=== PATIENT | female | born 1965 | race Two or more races ===

== ENCOUNTER → 2024-06-26 13:37 | Outpatient (BNVA) | payer OTHER, SELFPAY | PROVIDERS: PCP Physician Assistant; Visit Provider Physician Assistant | DX: Z00.00 Encounter for general adult medical examination without abnormal findings (principal); Z23 Encounter for immunization; F33.1 Major depressive disorder, recurrent, moderate; F41.9 Anxiety disorder, unspecified; G43.019 Migraine without aura, intractable, without status migrainosus; R23.2 Flushing; E78.9 Disorder of lipoprotein metabolism, unspecified; J45.20 Mild intermittent asthma, uncomplicated | CPT/HCPCS: 90471; 90656; 96127; 96160; 99396 ==

== ENCOUNTER 2024-09-13 08:28 | Outpatient (AMB) | payer OTHER, SELFPAY ==
--- OUTSIDE RECORDS SUMMARY | 2024-09-13 08:39 | XMS_ITS | Patient Health Record ---
Author Organization [facility] Address [address] [place] [address] Care Team Providers Care Scout Professional Sports Name Role Phone Mendoza [place] Primary Care Provider Unavailab Gaurav Lo Jr Unavailable [phone] Allergies Allergen (clinical drug ingredient) Drug/Non Drug Allergy documented on EMR Reaction Allergy Type Onset Date Status celecoxib CeleBREX Unknown Drug Allergy Active contrast dye (uncoded) Unknown Allergy Active Results Component Value Reference Range Notes Pathology Reviewed date:01/25/2024 08:25:40 AM Interpretation: Performing Lab:[facility], [address] [place] [phone] Notes/Report: Name: Melina Cook Age/Sex: 58/F : 1965 Unit#: [id number] Attend Dr: Gaurav Nunez MD Re01/19/24 Status : [facility] Location: [facility] Disch: SPEC : [id number] RECD : 01/19/24 STATUS: TONO RENTERIA NUM: [id number] TOMER: 01/19/24-[address]: Gaurav Nunez MD ENTERED: 01/19/24 35 SP TYPE: Surgical OTHR DR: Mendoza [place] PA-C ORDERED: HE Stain/3, Gross Micro L4/2, IHC, Special st. 2/2, H. pylori, AB/PAS/2 Diagnosis A. Stomach, antrum, biopsy: Gastric antral mucosa with mild chronic inactive gastritis; negative for Helicob acter pylori, intestinal metaplasia and dysplasia. B. Gastroesophageal junction, biopsy: Squamocolumnar junctional mucosa with mild chronic inflammation and few scattered intraepithelial eosinophils consistent with reflux esophagitis; negativ e for intestinal metaplasia and dysplasia. Clinical History Pre-Op Dx: Epigastric pain Post-Op Dx: Normal EGD Microscopic Description A-B. Microscopic sec tions examined. No metaplastic changes are seen, supported by AB/PAS stains (A-B). Material Received A. Antral bx's B. EG junction bx's Gross Description Received in two parts. Part A: Received in formalin labeled ?antral bx's (sic)? is a 0.4 cm rudolph rectangular tissue fragment, submitted in toto in a cassette labeled A. Part B: Received in formalin labeled ?EG junction bx's? are 4 hernandez-white and rudolph irregular and rectangular tiss ue fragments ranging from 0.15-0.35 cm, submitted in toto in a cassette labeled B. CEDS Special stains order ed and performed: AB/PAS on A-B. Copies To: Gaurav Nunez MD [facility] [address] [place] [id number] CONTINUED ON NEXT PAGE Name: Melina Cook Age/Sex: 58/F : 1965 Unit#: [id number] Attend Dr: Gaurav Nunez MD Re01/19/24 Status : [facility] Location: [facility] Disch: SPEC : [id number] RECD : 01/19/24-1119 [facility] NUM: [id number] TOMER: 01/19/24-[address] [facility] [address]: Gaurav Nunez MD ENTERED: 01/19/24- 35 SP TYPE: Surgical OTHR DR: Mendoza [place] PA-C ORDERED: HE Stain/3, Gross Micro L4/2, IHC, Special st. 2/2, H. pylori, AB/PAS/2 Copies To: (Continued) Mendoza [place] PA-C [facility] Primary Care,[address] [place] [address] Signed (si gnature on file) Ericka Land MD 01/22/24 1458 END OF REPORT Reason For Referral No Information Medications Medication SIG (Take, Route, Frequency, Duration) Notes Start Date End Date Status Melatonin 3 MG 1 tablet at bedtime as needed with food Orally as needed Active Albuterol Sulfate HFA 108 (90 Base) MCG/ACT 1 puff as needed Inhalation every 4 hrs Not-Fatemeh g buPROPion HCl ER (XL) 300 MG Oral for 30 Active Rizatriptan Benzoate 10 MG TAKE 1 TABLET BY MOUTH EVERY DAY FOR 30 DAYS Oral for 30 prn Active Ventolin HFA 108 (90 Base) MCG/ACT Inhalation for 25 Active Omeprazole 20 MG TAKE 1 CAPSULE BY [facility] EVERY DAY FOR 30 DAYS for 90 Active Vitamin D in winter Active Ibuprofen as needed Active Super B Complex - Orally Ac tive Immunizations Vaccine Route Administration Date Status Comme nts Influenza Unknown 04/07/2023 Administered Social History Tobacco Use: Social History Observation Description Date Details (start date - stop date) Former Smoker NA - NA Tobacco Use/Smoking Question Answer Notes Patient is a former smoker How long has it been since you last smoked? > 10 years Alcohol Screen Question Answer Notes Did you have a drink contain ing alcohol in the past year? Yes How often did you have a dri nk containing alcohol in the past year? Monthly or less (1 point) How many drinks did you have on a typical day when you were drinking in the past year? 1 or 2 drinks (0 point) How often did you have 6 or more drinks on one occasion in the past year? Never (0 point) Points 1 Interpretation Negative Section Notes: former smoker over 17 years ago former smoker over 17 years ago former smoker over 17 years ago Problems Problem Type SNOMED Code ICD Code Onset Dates Problem Status W/U Status Risk Notes Problem 119042090 Colon cancer screening (Z12.11) Active confirmed Problem 46653202 Epigastric pain (R10.13) Active confirmed Problem Personal history of colonic polyps (Z86.010) Active confirmed Problem 732497722 Encounter for long-term (current) use of NSAIDs (Z79.1) Active confirmed Vital Signs Blood pressure diastolic 00 mm Hg 11/30/2023 Height 58.5 in 11/30/2023 Blood pressure systolic 00 mm Hg 11/30/2023 Weight 122 lbs 11/30/2023 BMI 25.06 kg/m2 11/30/2023 Encounters Encounter Location Date Provider Diagnosis [facility] [address] [place], [place] [phone] 01/19/2024 Gaurav Nunez Jr Epigastric pain R10.13 [facility] [address] [place] [address] [place] [phone] 11/30/2023 Gaurav Nunez Jr Epigastric pain R10.13 [facility] [address] [place] [address] [place] [phone] 01/25/2024 Gaurav Nunez Jr Assessments Encounter Date Diagnosis (ICD Code) Assessment Notes Treatment Notes Treatment Clinical Notes Section Notes 01/19/2024 Epigastric pain (ICD-10 - R10.13) 11/30/2023 Epigastric pain (ICD-10 - R10.13) Endoscopy material was printed We discussed the causes of epigastric pain today. We discussed peptic ulcer disease, gastritis, and gastroesophageal reflux disease. We also discussed common bile duct stones which were extremely rare after cholecystectomy. She did have a mildly elevated lipase at that time she was in the ER of her pancreas looked normal by CT scan so I think a common duct stones is very unlikely, especially because her liver function tests were normal. We recommended she began omeprazole 20 mg daily, and have scheduled her for endoscopy. We discussed the risks and benefits of the procedure today. She understands these and agrees to proceed. She is advised stop ibuprofen one week before the procedure. Plan Of Treatment Future Test Test Name Order Date COLONOSCOPY 09/20/2017 UPPER GI ENDOSCOPY 11/30/2023 Next Appt Details Provider Name:Gaurav connor Jr, 01/15/2025 10:40:00 AM, [address] [place] [address], [address], [place], [address], Insurance Providers Payer Name Payer Address Payer Phone Subscriber Number Group Number Insured Name Patient Relationship to Insured Coverage Start Date Coverage End Date [facility] [address] [address] [place], [place] [id number] MELINA COOK Self - patient is the insured MEDICAID OF [facility] [address] [place] [address] [id number] MELINA COOK Self - patient is the insured Medical (General) History Medical History History ICD Code asthma migraine headaches seasonal allergies Colonoscopy 06/20/23, hyperplastic polyp, ten-year followup Surgical History Surgery Date(Month/Year) section Strabismus repair 1989 Right hip replacement 11/26 Cholecystectomy 04/28
--- OUTSIDE RECORDS SUMMARY | 2024-09-13 08:40 | XMS_ITS ---
Author Organization [facility] Address [address] [place] [phone] Care Team Providers Care Meter Reading Clerk Name Role Phone Mendoza [place] Primary Care Provider Unavailab Gaurav Lo Jr [phone] REASON FOR VISIT Patient presents today for gastritis Encounters Encounter Location Date Provider Diagnosis [facility] [address] [facility] [address] [place] [phone] 12/13/2023 Gaurav Nunez Jr Plan Of Treatment Next Appt Details Provider Name:Gaurav connor Jr, 01/15/2025 10:40:00 AM, [address] [facility], [address], [place], [address], Progress Notes * MELINA COOKDOB:1965 (59 yo F)Acc No.[id number]:12/13/2023 Progress Notes Patient:?MELINA COOK Provider:?Gaurav Nunez MD :1965???Age:58 Y???Sex:Female D ate:12/13/2023 Address:[address] [place] [address] Pcp:Mendoza [place] Subjective: * Chief Complaints: * ???1. Patient presents today for gastritis. * Medical History:? Objective: * Vitals:? Assessment: Plan: * Treatment: * * The named appointment provid er may or may not be the originator of this progress note, and it is not deemed complete until electronically signed by the appointment provider. Sign off status: Pending * Provider:?Gaurav Nunez MD Date:?0 12/13/2023 Generated for Lupe flood/Renan/Ron on:?09/13/2024 08:39 AM EDT
--- OUTSIDE RECORDS SUMMARY | 2024-09-13 08:40 | XMS_ITS ---
Author Organization [facility] Address [address] [place] [phone] Care Team Providers Care Lean Six Sigma Senior Specialist Name Role Phone Mendoza [place] Primary Care Provider Unavailab Gaurav Lo Jr REASON FOR VISIT pathology Encounters Encounter Location Date Provider Diagnosis [facility] [address] [facility] [address] [place] [phone] 01/25/2024 Gaurav Nunez Jr Plan Of Treatment Next Appt Details Provider Name:Gaurav connor Jr, 01/15/2025 10:40:00 AM, [address] [facility], [address], [place], [address], Progress Notes * MELINA COOKDOB:1965 (58 yo F)Acc No.[id number]:01/25/2024 Patient:?MELINA COOK :1965???Age:58 Y???Sex:Female Address:[address] [place] [address], [address] * true * Date:? Generated for Printi remigio/Renan/eTransmitting on:?09/13/2024 08:40 AM EDT
--- OUTSIDE RECORDS SUMMARY | 2024-09-13 08:40 | XMS_ITS ---
Author Organization [facility] Address [address] [place] [address] [place] [phone] Care Team Providers Care Thermal Engineer Name Role Phone Mendoza [place] Primary Care Provider Unavailab Gaurav Lo Jr [phone] REASON FOR VISIT epigastric pain Encounters Encounter Location Date Provider Diagnosis [facility] Outpatient [address] [place] [phone] 01/19/2024 Gaurav Nunez Jr Epigastric pain R10.13 Assessments Encounter Date Diagnosis (ICD Code) Assessment Notes Treatment Notes Treatment Clinical Notes Section Notes 01/19/2024 Epigastric pain (ICD-10 - R10.13) Plan Of Treatment Next Appt Details Provider Name:Gaurav connor Jr, 01/15/2025 10:40:00 AM, [address] [facility], [address] [facility], [place], [address], Progress Notes * MELINA COOKDOB:1965 (59 yo F)Acc No.[id number]:01/19/2024 EGD/MAC Patient:?MELINA COOK Provider:?Gaurav Nunez MD :1965???Age:58 Y???Sex:Female D ate:01/19/2024 Address:[address] [place] [address] Pcp:Mendoza [place] Subjective: * Chief Complaints: * ???1. Epigastric pain. * Medical History:? Objective: * Vitals:? Assessment: * Assessment: 1.?Epigastric pain - R10.13 (Primary)??? Plan: * Treatment: * Procedure Codes:?05726 UPPER GI ENDOSCOPY, BIOPSY * * The named appointment provid er may or may not be the originator of this progress note, and it is not deemed complete until electronically signed by the appointment provider. Sign off status: Pending * Provider:?Gaurav Nunez MD Date:?0 01/19/2024 Generated for Lupe flood/Renan/Nadersmitting on:?09/13/2024 08:39 AM EDT
--- NOTE | 2024-09-13 08:41 | MHC.OFFWIV ---
Intake Vital Signs 09/13/24 08:42 Height 4 ft 9 in Weight 125 lb BMI 27.0 BP 102/64 Blood Pressure Location Rt brachial Position Sitting Pulse 76 Pulse Source Pulse Oximeter Temp 97.8 F Temp Source Oral Pulse Oximetry (%) 98 Oxygen Delivery Method Room Air Intake Visit Reasons: EP-?uti Patient Tobacco Use Status: Former Tobacco user Allergies celecoxib [From Celebrex] Allergy (Intermediate, Verified 07/11/24 13:54) Hives Iodinated Contrast Media [Contrast Dye] Allergy (Verified 07/11/24 13:54) Hives Medication List - Last Reconciled 09/13/24 by Sari Campbell MD albuterol sulfate 90 mcg/actuation (Ventolin HFA) 2 puffs PO Q6H PRN bupropion HCl XL 300 mg PO DAILY 30 days cholecalciferol (vitamin D3) 50 mcg PO DAILY diphenhydramine HCl (Benadryl) 25 mg PO TID PRN estradiol 0.01%(0.1mg/gram) (Estrace) 1 g vaginal 2XW 4 weeks estradiol transdermal famotidine 20 mg PO DAILY 14 days fluticasone propion-salmeterol 45-21 mcg/actuation (Advair HFA) 1 puff inhalation DAILY lorazepam 0.5 mg PO BID PRN 5 days magnesium oxide 400 mg PO DAILY melatonin 10 mg PO BEDTIME PRN omeprazole 20 mg PO DAILY ondansetron 4 mg PO Q8H PRN progesterone micronized mg PO rizatriptan 10 mg PO DAILY PRN Do you need a note to return to daycare/school/sports/work: Yes HPI EP-?uti HPI Details CC : Dysuria for the past few days Patient is not sure when it started and it has been happening off and on Tells me that she just have a feeling that she need to urinate She did not drink enough water yesterday her urine is very concentrated Also has been feeling slightly nauseous There is no fever no chills no vomiting no diarrhea no back pain UA shows slight amount of blood some ketones specific gravity of 1030 I would recommend to drink plenty of water and repeat the urine again through PCP meanwhile I have sent Macrobid for 3 days and Zofran [facility] Medical History Hypotension Arthritis Refusal of blood transfusions as patient is Restorationism Osteoarthritis of right hip Hx of migraine headaches Asthma MDD (major depressive disorder), recurrent episode, moderate Surgical History Status post laparoscopic cholecystectomy Status post total replacement of right hip H/O colonoscopy History of removal of cyst History of eye surgery History of section Family History Father Myocardial infarction Diabetes Hypertension CVD (cardiovascular disease) Mother Hypertension Sister Hypertension Maternal Grandmother Medical history unknown Maternal Grandfather Glaucoma Paternal Grandmother Alzheimers disease Paternal Grandfather Diabetes Son Down syndrome Autism Myelofibrosis Family/Other Breast cancer Social History Household Members: Significant Other and Family Housing: House Are you a primary pharmacy customer care specialist to a significant other at home: No Do you presently have visiting nurse or other home services: No Alcohol intake: current Alcohol intake frequency: holidays/special occasions only Alcohol type: beer and wine Patient Tobacco Use Status: Former Tobacco user Tobacco use type: Cigarette e-Cigarette/Vaping Use: Never Used Second Hand Smoke Exposure: No Advance Directives Date on File: 11/02/21 service: No Current occupational status: unemployed 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 Sexual orientation: Straight/Heterosexual Gender identity: Female Cognitive needs: No Hearing needs: No Vision needs: Yes (reading glasses) Review of Systems Const All systems reviewed & are unremarkable except as noted in HPI and below Physical Exam Vital Signs: Last Vital Signs Temp 97.8 F 09/13/24 08:42 Pulse 76 09/13/24 08:42 BP 102/64 09/13/24 08:42 Pulse Ox 98 09/13/24 08:42 Oxygen Delivery Method Room Air 09/13/24 08:42 BMI result Body Mass Index 27.0 Const General: no acute distress Orientation/consciousness: patient oriented x3 Eyes General: appearance normal, both eyes and all related structures Resp Effort & Inspection: normal respiratory effort and able to speak in complete sentences GI Other: Nontender General: Yes no CVA tenderness Back/Spine/Pelvis Back: no CVA tenderness Neuro General: patient oriented x3 Psych Mental Status: mental status grossly normal Results AMB Urinalysis, Automated UA Leukoctes 0 Promise/uL Last Edit by Cintia Marroquin CMA on 09/13/24 08:51 UA Nitrite Negative Last Edit by Cintia Marroquin CMA on 09/13/24 08:51 UA Urobilinogen 0.2 mg/dL Last Edit by Cintia Marroquin, BC on 09/13/24 08:51 UA Protein 15 mg/dL Last Edit by Cintia Marroquin, STAFF RADIATION THERAPIST on 09/13/24 08:51 UA pH 6.0 Last Edit by Cintia Marroquin, STAFF RADIATION THERAPIST on 09/13/24 08:51 UA Blood 10 Lion/uL Last Edit by Cintia Marroquin, STAFF RADIATION THERAPIST on 09/13/24 08:51 UA Specific [place] 1.030 Last Edit by Cintia Marroquin, BC on 09/13/24 08:51 UA Ketone Positive Last Edit by Cintia Marroquin, BC on 09/13/24 08:51 UA Bilirubin 2 mg/dL Last Edit by Cintia Marroquin, STAFF RADIATION THERAPIST on 09/13/24 08:51 UA Glucose 0 mg/dL Last Edit by Cintia Marroquin, BC on 09/13/24 08:51 Results Reviewed Results Reviewed: Laboratory Last Values Urine pH (Auto) 6.0 09/13/24 08:49 Specific [place] (Auto) 1.030 09/13/24 08:49 Urine Protein (Auto) 15 mg/dL 09/13/24 08:49 Glucose (UA)(Auto) 0 mg/dL 09/13/24 08:49 Urine Ketones (Auto) Positive 09/13/24 08:49 Urine Blood (Auto) 10 Lion/uL 09/13/24 08:49 Urine Nitrite (Auto) Negative 09/13/24 08:49 Urine Bilirubin (Auto) 2 mg/dL 09/13/24 08:49 Urine Urobilinogen (Auto) 0.2 mg/dL 09/13/24 08:49 Leukocyte Esterase (Auto) 0 Promise/uL 09/13/24 08:49 Assessment & Plan Assessment & Plan (1) Dysuria: Code(s): R30.0 - Dysuria (2) Nausea: Code(s): R11.0 - Nausea Plan CC : Dysuria for the past few days Patient is not sure when it started and it has been happening off and on Tells me that she just have a feeling that she need to urinate She did not drink enough water yesterday her urine is very concentrated Also has been feeling slightly nauseous There is no fever no chills no vomiting no diarrhea no back pain UA shows slight amount of blood some ketones specific gravity of 1030 I would recommend to drink plenty of water and repeat the urine again through PCP meanwhile I have sent Macrobid for 3 days and Zofran Orders: Orders AMB Urinalysis Automated Today Bety Benson, [facility] Z13.9 - Encounter for screening, unspecified Medications: New nitrofurantoin monohyd/m-cryst 100 mg (Macrobid) must administer with a meal/food 100 mg PO Q12H 3 days 6 caps 0RF Sari Campbell MD ondansetron HCl 4 mg PO Q8H 3 days PRN 10 tabs 0RF nausea and vomiting Sari Campbell MD R11.0 - Nausea Coding Level of Care Code Est Pt Level 3 (70112) Diagnoses Dysuria R30.0 Nausea R11.0
[2024-09-13 08:42] VITALS: BP 102/64; PULSE 76; TEMP 36.6; O2SAT 98; BMI 27.0
== END 2024-09-13 09:06 | disposition home or self-care (01) ==
PROVIDERS: PCP Physician Assistant; Visit Provider Internal Medicine
DX: R30.0 Dysuria (principal); R11.0 Nausea; Z13.9 Encounter for screening, unspecified

== ENCOUNTER → 2024-09-13 08:28 | Outpatient (BNVA) | payer OTHER, SELFPAY | PROVIDERS: PCP Physician Assistant; Visit Provider Internal Medicine | DX: R30.0 Dysuria (principal); R11.0 Nausea | CPT/HCPCS: 81003; 99212 ==

== ENCOUNTER 2024-10-09 13:03 | Outpatient (AMB) | payer OTHER, SELFPAY ==
--- NOTE | 2024-10-09 13:17 | MHC.OFFVIS ---
Vital Signs 10/09/24 13:19 Height 4 ft 10 in Weight 124 lb BMI 25.9 Handedness Right Intake Visit Reasons: O.V-RT thumb/wrist pain-Limited ROM Intake Note: Evy 59 yr old female presents today for her follow up visit for her right thumb and wrist O.A pain. At her last visit she was advise to modify her activities avoid any heavy or repetitive pinching or gripping activities and she was also fitted for a comfort cool brace to wear with daily activity. Currently states she finds no improvement from her symptoms of last visit. She expresses she feels her symptoms have worsened. Describes her thumb is in constant pain affecting her ADLs. She has a son with special needs at home and expresses she requires a lot of hands on work with him. Patient is interested in possible injection today. Allergies celecoxib [From Celebrex] Allergy (Intermediate, Verified 10/09/24 13:20) Hives Iodinated Contrast Media [Contrast Dye] Allergy (Verified 10/09/24 13:20) Hives HPI HPI O.V-RT thumb/wrist pain-Limited ROM: Details: Evy is a 59 year old right hand dominant woman who returns with complaints of right basal joint & wrist pain. Her chief complaint is of right basal joint & wrist pain. This is worse with pinching, gripping, knitting, lifting activities, or pushing a button with her thumb, and radiates into her wrist. She says she occasionally drops objects she is holding due to her pain. She found no relief from activity modification or bracing. She found limited relief from OT She denies any numbness or tingling She has a son with special needs at home who requires hands on care, and she finds this difficult. [facility] Medical History Hypotension Arthritis Refusal of blood transfusions as patient is Orthodoxy Osteoarthritis of right hip Hx of migraine headaches Asthma MDD (major depressive disorder), recurrent episode, moderate Surgical History Status post laparoscopic cholecystectomy Status post total replacement of right hip H/O colonoscopy History of removal of cyst History of eye surgery History of section Family History Father Myocardial infarction Diabetes Hypertension CVD (cardiovascular disease) Mother Hypertension Sister Hypertension Maternal Grandmother Medical history unknown Maternal Grandfather Glaucoma Paternal Grandmother Alzheimers disease Paternal Grandfather Diabetes Son Down syndrome Autism Myelofibrosis Family/Other Breast cancer Social History Household Members: Significant Other and Family Housing: House Are you a primary child care coordinator to a significant other at home: No Do you presently have visiting nurse or other home services: No Alcohol intake: current Alcohol intake frequency: holidays/special occasions only Alcohol type: beer and wine Patient Tobacco Use Status: Former Tobacco user Tobacco use type: Cigarette e-Cigarette/Vaping Use: Never Used Second Hand Smoke Exposure: No Advance Directives Date on File: 11/02/21 service: No Current occupational status: unemployed 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 Sexual orientation: Straight/Heterosexual Gender identity: Female Cognitive needs: No Hearing needs: No Vision needs: Yes (reading glasses) Physical Exam Vital Signs: BMI result Body Mass Index 25.9 Extrem Other: Evaluation of right Upper Extremity, : The patient is alert, oriented, and in no acute distress Neuro: Median, Ulnar, Radial nerves motor and sensory intact and sensation is normal to the tips of all digits Vascular: Cap refill brisk ROM: She can make a fist and extend all her digits General: Non tender over 1st dorsal compartment of the thumb Negative Tanmay test bilaterally No tenderness about MCP joint, MCP joint is stable No tenderness over A1 juliocesar No locking or catching of thumb Most tender over the basal joint, reproducible Neg CMC grind Radiographs: 3 views of the right wrist from 07/20/21 were reviewed by me today in clinic. They show no fractures or dislocations. There is some mild basal joint arthritis, with joint space narrowing 3 views of the left wrist from 07/20/21 were reviewed by me today in clinic. They show no fractures or dislocations. There is basal joint arthritis, with joint space narrowing Office Procedures AMB Fracture Care Details: No fracture, injection Fracture Billing Code: Fracture Billing Code Assessment & Plan Assessment & Plan (1) Arthritis of carpometacarpal (CMC) joint of right thumb: Code(s): M18.11 - Unilateral primary osteoarthritis of first carpometacarpal joint, right hand Category: Medical Plan Assessment and plan: 1. Right basal joint arthritis This is her primary complaint today I educated her about this condition I discussed operative and non-operative treatment options I recommend a steroid injection & activity modification, and she is in agreement I discussed activity modification, they should limit or avoid any heavy or repetitive pinching or gripping activities She was fitted for a comfort cool brace to wear with daily activity She should work on ROM exercises, and avoid any gripping or strengthening activities I discussed the use of assistive devices for daily activity Injection #1: The risks and benefits of a steroid injection including but not limited to risk of damage to blood vessels, nerve, tendon, infection, skin bleaching, persistent or worsening pain, and failure to improve symptoms were discussed with the patient and they wish to proceed with the steroid injection. Once consent was obtained the skin over the dorsum of the Right basal joint was sterilely prepped. The joint was then injected with a combination of 1 mL of (40 mg/ml} Depo-Medrol and 1% plain Lidocaine. The patient appears to have tolerated the procedure well and with no complications. She had good early relief before leaving clinic today. She knows that they may not have another steroid injection into this joint for least 4 months. 2. Left basal joint arthritis 3. Left volar wrist ganglion No mention today Scribed for Christina Sinha MD by Nikolas De León, medical historian, on 10/09/24 at 1:40 PM, EST. Coding Level of Care Code Est Pt Level 3 (50502) Diagnoses Arthritis of carpometacarpal (CMC) joint of right thumb M18.11 CPT Codes Fracture Care - Fracture Billing Code: Fracture Billing Code ([id number])
[2024-10-09 13:19] VITALS: BMI 25.9
--- OUTSIDE RECORDS SUMMARY | 2024-10-09 13:27 | XMS_ITS | Patient Health Record ---
Author Organization [facility] Address [address] [place] [address] Care Team Providers Care Irrigation Teacher Name Role Phone Mendoza Norton Primary Care Provider Unavailab Gaurav Lo Jr Unavailable [phone] Allergies Allergen (clinical drug ingredient) Drug/Non Drug Allergy documented on EMR Reaction Allergy Type Onset Date Status celecoxib CeleBREX Unknown Drug Allergy Active contrast dye (uncoded) Unknown Allergy Active Results Component Value Reference Range Notes Pathology Reviewed date:01/25/2024 08:25:40 AM Interpretation: Performing Lab:[facility], [address] [place] [id number] Notes/Report: Name: Melina Cook Age/Sex: 58/F : 1965 Unit#: [id number] Attend Dr: Gaurav Nunez MD Re01/19/24 Status : [facility] Location: [facility] Disch: SPEC : [id number] RECD : 01/19/24 STATUS: TONO RENTERIA NUM: [id number] TOMER: 01/19/24-[address]: Gaurav Nunez MD [...] on A-B. Copies To: Gaurav Nunez MD [facility] [address] [place] [address] CONTINUED ON NEXT PAGE Name: Melina Cook Age/Sex: 58/F : 1965 Unit#: [id number] Attend Dr: Gaurav Nunez MD Re01/19/24 Status : [facility] Location: [facility] Disch: SPEC : [id number] RECD : 01/19/24-1119 [facility] NUM: [id number] TOMER: 01/19/24-[address] [facility] [address]: Gaurav Nunez MD ENTERED: 01/19/24- 35 SP TYPE: Surgical OTHR DR: Mendoza Norton PA-C ORDERED: HE Stain/3, Gross Micro L4/2, IHC, Special st. 2/2, H. pylori, AB/PAS/2 Copies To: (Continued) Mendoza Norton PA-C [facility] Primary Care,[address] [place] [address] Signed (si gnature on file) Ericka Land [...] Omeprazole 20 MG TAKE 1 CAPSULE BY [facility] EVERY DAY FOR 30 DAYS for 90 [...] Problem Status W/U Status Risk Notes Problem 826074804 Colon cancer screening (Z12.11) Active confirmed Problem 65590707 Epigastric pain (R10.13) Active confirmed Problem History of polyp of colon (situation) (558339872) Personal history of colonic polyps (Z86.010) Active confirmed Problem 245086366 Encounter for long-term (current) use of NSAIDs (Z79.1) Active confirmed Vital Signs Blood pressure diastolic 00 mm Hg 11/30/2023 Height 58.5 in 11/30/2023 Blood pressure systolic 00 mm Hg 11/30/2023 Weight 122 lbs 11/30/2023 BMI 25.06 kg/m2 11/30/2023 Encounters Encounter Location Date Provider Diagnosis [facility] Outpatient [address] [place], [place] [id number] 01/19/2024 Gaurav Nunez Jr Epigastric pain R10.13 [facility] [address] [place] [address] [place] [phone] 11/30/2023 Gaurav Nunez Jr Epigastric pain R10.13 [facility] [address] [place] [address] [place] [phone] 01/25/2024 Gaurav Nunez Jr Assessments Encounter Date [...] Provider Name:Gaurav connor Jr, 01/15/2025 10:40:00 AM, [address] [place] [address], [address], [place], [address], Insurance Providers Payer Name Payer Address Payer Phone Subscriber Number Group Number Insured Name Patient Relationship to Insured Coverage Start Date Coverage End Date [facility] [address] [address] [place], [place] [id number] [phone] [id number] MELINA COOK Self - patient is the insured MEDICAID OF [facility] [address] [place] [address] [phone] [id number] MELINA COOK Self - patient is the insured Medical (General) History Medical History History ICD Code asthma migraine headaches seasonal allergies Colonoscopy 06/20/23, hyperplastic polyp, ten-year followup Surgical History Surgery Date(Month/Year) section Strabismus repair 1989 Right hip replacement 11/26 Cholecystectomy 04/28
== END 2024-10-09 13:48 | disposition home or self-care (01) ==
LOC: HO.HOS 13:03
PROVIDERS: PCP Physician Assistant; Visit Provider Orthopaedic Surgery
DX: M18.11 Unilateral primary osteoarthritis of first carpometacarpal joint, right hand (principal)
CPT/HCPCS: 20600; 99213

== ENCOUNTER → 2024-10-09 13:03 | Outpatient (BNVA) | payer OTHER, SELFPAY | PROVIDERS: PCP Physician Assistant; Visit Provider Orthopaedic Surgery | DX: M18.11 Unilateral primary osteoarthritis of first carpometacarpal joint, right hand (principal) | CPT/HCPCS: 20600; 99212; J1010; J2003 ==

== ENCOUNTER 2024-11-21 11:45 | Outpatient (REF) | payer OTHER, SELFPAY | END 2024-11-21 11:46 | disposition home or self-care (01) | LOC: HO.LAB 11:45 | PROVIDERS: PCP Physician Assistant | DX: R53.83 Other fatigue (principal); N39.0 Urinary tract infection, site not specified; K29.70 Gastritis, unspecified, without bleeding; R39.15 Urgency of urination; R35.0 Frequency of micturition; R31.0 Gross hematuria | CPT/HCPCS: 81003; 87086; 99212 ==

== ENCOUNTER 2024-11-21 11:45 | Outpatient (AMB) | payer OTHER, SELFPAY ==
[2024-11-21 12:04] VITALS: BP 90/56; PULSE 86; TEMP 36.8; O2SAT 98; BMI 24.9
--- NOTE | 2024-11-21 12:04 | AM.OFFWIN_ITS ---
Intake Vital Signs 11/21/24 12:04 11/21/24 12:14 Height 4 ft 10 in Weight 119 lb BMI 24.9 BP 90/56 L 102/60 Blood Pressure Location Lt brachial Rt brachial Position Sitting Sitting Pulse 86 Pulse Source Pulse Oximeter Temp 98.2 F Temp Source Oral Pulse Oximetry (%) 98 Oxygen Delivery Method Room Air Intake Visit Reasons: EP ? UTI Intake Note: presents with frequent urination, burning when peeing,fatigue, bloody urine about a week Patient Tobacco Use Status: Former Tobacco user Allergies celecoxib (From Celebrex) Allergy (Intermediate, Verified 11/21/24 12:11) Hives Iodinated Contrast Media (Contrast Dye) Allergy (Verified 10/09/24 13:20) Hives Do you need a note to return to daycare/school/sports/work: No HPI HPI Comments History of Present Illness Details Patient is a 59-year-old female complaining of suspicion of a urinary tract infection. She tells me that she has had 1 week of frequent urination, burning with urination, incomplete empything, urgency, fatigue and some blood in her urine. She denies any fevers, low back pain or history of kidney stones. [facility] Medical History Hypotension Arthritis Refusal of blood transfusions as patient is Buddhism Osteoarthritis of right hip Hx of migraine headaches Asthma MDD (major depressive disorder), recurrent episode, moderate Surgical History Status post laparoscopic cholecystectomy Status post total replacement of right hip H/O colonoscopy History of removal of cyst History of eye surgery History of section Family History Father Myocardial infarction Diabetes Hypertension CVD (cardiovascular disease) Mother Hypertension Sister Hypertension Maternal Grandmother Medical history unknown Maternal Grandfather Glaucoma Paternal Grandmother Alzheimers disease Paternal Grandfather Diabetes Son Down syndrome Autism Myelofibrosis Family/Other Breast cancer Social History Household Members: Significant Other and Family Housing: House Are you a primary transitional care liaison to a significant other at home: No Do you presently have visiting nurse or other home services: No Alcohol intake: current Alcohol intake frequency: holidays/special occasions only Alcohol type: beer and wine Patient Tobacco Use Status: Former Tobacco user Tobacco use type: Cigarette e-Cigarette/Vaping Use: Never Used Second Hand Smoke Exposure: No Advance Directives Date on File: 11/02/21 service: No Current occupational status: unemployed 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 Sexual orientation: Straight/Heterosexual Gender identity: Female Cognitive needs: No Hearing needs: No Vision needs: Yes (reading glasses) Review of Systems Const All systems reviewed & are unremarkable except as noted in HPI and below Physical Exam Vital Signs: Last Vital Signs Temp 98.2 F 11/21/24 12:04 Pulse 86 11/21/24 12:04 BP 102/60 11/21/24 12:14 Pulse Ox 98 11/21/24 12:04 Oxygen Delivery Method Room Air 11/21/24 12:04 BMI result Body Mass Index 24.9 Const General: cooperative, healthy appearing, comfortable and no acute distress Orientation/consciousness: patient oriented x3 HEENT Head: Yes normal to inspection Ears: hearing grossly normal bilaterally General nose exam: Normal external nose present Face and sinus: Yes normal facial exam Neck Neck: Yes normal visual inspection, Yes trachea midline and Yes supple Resp Effort & Inspection: normal respiratory effort and able to speak in complete sentences Skin General skin exam: no rashes or lesions noted Neuro General: patient oriented x3 Psych Appearance: grossly normal Speech and movement: Normal speech and movement present Attitude: cooperative Thought process: Normal thought process present Insight: Good insight present (Psych) Judgement: Good judgement present (Psych) Assessment & Plan Assessment & Plan (1) Urinary tract infection: Code(s): N39.0 - Urinary tract infection, site not specified Qualifiers: Urinary tract infection type: site unspecified Hematuria presence: without hematuria Qualified Code(s): N39.0 - Urinary tract infection, site not specified Plan: Urinalysis is positive for leukocytes, 2+ protein, 3+ blood, positive ketones and 1+ bilirubin. We will treat for UTI with cefuroxime, I did advise patient follow up with her PCP at her next appointment in January to have a urinalysis done to be sure that the protein, blood, ketones and the bilirubin are no longer present. We will send urine culture and advised patient if I need to change the antibiotic that I will call her. Advised if she had worsening of symptoms or develops a fever or low back pain to please let us know or the emergency department. Orders: Orders Urine Culture Today N39.0 - Urinary tract infection, site not specified Medications: New cefuroxime axetil 500 mg PO Q12H 10 tabs 0RF Discontinued famotidine Discontinued Reason: No Longer Medically Relevant 20 mg PO DAILY 14 days 14 tabs 0RF K29.70 - Gastritis, unspecified, without bleeding Coding Level of Care Code Est Pt Level 3 (84664) Diagnoses Urinary tract infection without hematuria, site unspecified N39.0 Urinary tract infection type: site unspecified Hematuria presence: without hematuria
[2024-11-21 12:14] VITALS: BP 102/60
--- OUTSIDE RECORDS SUMMARY | 2024-11-21 12:35 | XMS_ITS | Patient Health Record ---
Author Organization [facility] Address [address] [place] [address] Care Team Providers Care Senior Formulation Scientist Name Role Phone Mendoza Norton Primary Care Provider Gaurav Porter Jr Unavailable [phone] Allergies Allergen (clinical drug ingredient) Drug/Non Drug Allergy documented on EMR Reaction Allergy Type Onset Date Status celecoxib CeleBREX Unknown Drug Allergy Active contrast dye (uncoded) Unknown Allergy Active Results Component Value Reference Range Notes Pathology Reviewed date:01/25/2024 08:25:40 AM Interpretation: Performing Lab:[facility], [address] [place] [phone] Notes/Report: Reason For Referral No Information Medications Medication [...] Omeprazole 20 MG TAKE 1 CAPSULE BY [facility] EVERY DAY FOR 30 DAYS [...] Problem Status W/U Status Risk Notes Problem 545431458 Colon cancer screening (Z12.11) Active confirmed Problem 89602615 Epigastric pain (R10.13) Active confirmed Problem Personal history of colonic polyps (Z86.010) Active confirmed Problem 680647843 Encounter for long-term (current) use of NSAIDs (Z79.1) Active confirmed Vital Signs Blood pressure diastolic 00 mm Hg 11/30/2023 Height 58.5 in 11/30/2023 Blood pressure systolic 00 mm Hg 11/30/2023 Weight 122 lbs 11/30/2023 BMI 25.06 kg/m2 11/30/2023 Encounters Encounter Location Date Provider Diagnosis [facility] [address] [place] [id number] 01/19/2024 Gaurav Nunez Jr Epigastric pain R10.13 [facility] [address] [place] [phone] 11/30/2023 Gaurav Nunez Jr Epigastric pain R10.13 [facility] [address] [place] [phone] 01/25/2024 Gaurav Nunez Jr Assessments Encounter Date [...] Provider Name:Gaurav connor Jr, 01/15/2025 10:40:00 AM, [address] [place] [address], [address], [place], [address], Insurance Providers Payer Name Payer Address Payer Phone Subscriber Number Group Number Insured Name Patient Relationship to Insured Coverage Start Date Coverage End Date [facility] [address] [address] [place], [place] [id number] MELINA COOK Self - patient is the insured MEDICAID OF [facility] [address] [place] [address] [id number] MELINA COOK Self - patient is the insured Medical (General) History Medical History History ICD Code asthma migraine headaches seasonal allergies Colonoscopy 06/20/23, hyperplastic polyp, ten-year followup Surgical History Surgery Date(Month/Year) section Strabismus repair 1989 Right hip replacement 11/26 Cholecystectomy 04/28
== END 2024-11-21 12:32 | disposition home or self-care (01) ==
PROVIDERS: PCP Physician Assistant; Visit Provider Physician Assistant
DX: Z13.9 Encounter for screening, unspecified (principal); N39.0 Urinary tract infection, site not specified

== ENCOUNTER 2024-12-05 15:21 | Outpatient (AMB) | payer OTHER, SELFPAY ==
--- OUTSIDE RECORDS SUMMARY | 2024-12-05 15:28 | XMS_ITS | Encounter Summary ---
Author Organization [facility] Address [address] [place] [address] Phone Care Team Providers Care Freight Rate Specialist Name Role Phone Mendoza Norton Primary Care Provider + Reason for Referral * Physical Therapy (Routine) - Closed Specialty Diagnoses / Procedures Referred By Jordana piper Referred To Contact Physical Therapy Diagnoses Encounter for rehabilitation Ferdinand Pruett MD Phone: tel: fax: [email or web address] [address] [place] [address] Phone: tel: Referral ID Status Reason Start Date Expiration Date Visits Re quested Visits Authorized [id number] Closed 03/20/2019 03/20/2020 9 9 Encounter Details Date Type Department Care Team (Latest Contact Info) Description 03/20/2019 Transcribe Orders [facility] [address] [place] [address] Ferdinand Pruett MD [facility] [address] [place] [address] [email or web address] Encounter for rehabilitation (Primary Dx) Social History Tobacco Use Types Packs/Day Years Used Date Smoking Tobacco: Never Assessed Comments Unknown Sex and Gender Information Value Date Recorded Sex Assigned at Not on file Legal Sex Female 2:32 AM EDT Gender Identity Not on file Sexual Orientation Not on file documented as of this encounter Plan of Treatment Scheduled Referrals Name Type Priority Associated Diagnoses Orde r Schedule Ambulatory referral to [facility] Physical Therapy Outpatient Referral Routine Encounter for rehabilitation Ordered: 03/20/2019 documented as of this encounter Visit Diagnoses Diagnosis Encounter for rehabilitation- Primary documented in this encounter Care Teams Freight Rate Specialist Relationship Specialty Start Date End Date Mendoza Norton PA [address] [place] [address] PCP - General 03/20/19 documented as of this encounter Additional Source Comments The information contained in this document represents components of the legal health record. It is not the complete legal health record.[facility]
--- OUTSIDE RECORDS SUMMARY | 2024-12-05 15:28 | XMS_ITS | Patient Health Record ---
Author Organization [facility] Address [address] [place] [address] Care Team Providers Care Operations Specialist Name Role Phone Mendoza Norton Primary Care Provider Gaurav Porter Jr Unavailable [phone] Allergies Allergen (clinical drug ingredient) Drug/Non Drug Allergy documented on EMR Reaction Allergy Type Onset Date Status celecoxib CeleBREX Unknown Drug Allergy Active contrast dye (uncoded) Unknown Allergy Active Results Component Value Reference Range Notes Pathology Reviewed date:01/25/2024 08:25:40 AM Interpretation: Performing Lab:[facility], [address] [place] [phone] Notes/Report: Reason For Referral No Information Medications [...] Omeprazole 20 MG TAKE 1 CAPSULE BY [facility] EVERY DAY FOR 30 DAYS [...] Problem Status W/U Status Risk Notes Problem 580498169 Colon cancer screening (Z12.11) Active confirmed Problem 80429778 Epigastric pain (R10.13) Active confirmed Problem History of polyp of colon (situation) (455532945) Personal history of colonic polyps (Z86.010) Active confirmed Problem 423727769 Encounter for long-term (current) use of NSAIDs (Z79.1) Active confirmed Encounters Encounter Location Date Provider Diagnosis [facility] Outpatient [address] [place], [place] [phone] 01/19/2024 Gaurav Nunez Jr Epigastric pain R10.13 [facility] [address] [facility] [address] [place] [address] 01/25/2024 Gaurav Nunez Jr Assessments Encounter Date Diagnosis (ICD Code) Assessment Notes Treatment Notes Treatment Clinical Notes Section Notes 01/19/2024 Epigastric pain (ICD-10 - R10.13) Plan Of Treatment Future Test Test Name Order Date COLONOSCOPY 09/20/2017 UPPER GI ENDOSCOPY 11/30/2023 Next Appt Details Provider Name:Gaurav connor Jr, 01/15/2025 10:40:00 AM, [address] [facility], [address], [place], [address], Insurance Providers Payer Name Payer Address Payer Phone Subscriber Number Group Number Insured Name Patient Relationship to Insured Coverage Start Date Coverage End Date [facility] [address] [address] [place], [place] [id number] MELINA COOK Self - patient is the insured MEDICAID OF [facility] [address] [place] [address] [id number] MELINA COOK Self - patient is the insured Medical (General) History Medical History History ICD Code asthma migraine headaches seasonal allergies Colonoscopy 06/20/23, hyperplastic polyp, ten-year followup Surgical History Surgery Date(Month/Year) section Strabismus repair 1989 Right hip replacement 11/26 Cholecystectomy 04/28
--- NOTE | 2024-12-05 16:16 | MHC.OFFVIS ---
Vital Signs 12/05/24 16:16 Height 4 ft 10 in Intake Visit Reasons: f/u 6m Allergies celecoxib (From Celebrex) Allergy (Intermediate, Verified 12/05/24 16:17) Hives Iodinated Contrast Media (Contrast Dye) Allergy (Verified 12/05/24 16:17) Hives Medication List - Last Reconciled 12/05/24 by Kia Donohue CNP albuterol sulfate 90 mcg/actuation (Ventolin HFA) 2 puffs PO Q6H PRN bupropion HCl XL 300 mg PO DAILY 30 days cefuroxime axetil 500 mg PO Q12H cholecalciferol (vitamin D3) 50 mcg PO DAILY diphenhydramine HCl (Benadryl) 25 mg PO TID PRN estradiol transdermal fluticasone propion-salmeterol 45-21 mcg/actuation (Advair HFA) 1 puff inhalation DAILY lorazepam 0.5 mg PO BID PRN 5 days magnesium oxide 400 mg PO DAILY melatonin 10 mg PO BEDTIME PRN ondansetron HCl 4 mg PO Q8H PRN 3 days progesterone micronized mg PO rizatriptan 10 mg PO DAILY PRN HPI Comments Details: 59-year-old woman with family h/o cerebral aneurysm and long h/o migraine type headaches. She was doing okay. Migraines were much better. She was getting migraine about 1-2x/month. Rizatriptan as needed helped. Sleep was okay. [facility] Medical History (Updated 12/05/24 @ 16:19 by Kia Donohue CNP) Cerebral aneurysm Exophoria Periodic limb movement disorder Migraine without aura RLS (restless legs syndrome) Hypotension Arthritis Refusal of blood transfusions as patient is Cheondoism Osteoarthritis of right hip Hx of migraine headaches Asthma MDD (major depressive disorder), recurrent episode, moderate Surgical History Status post laparoscopic cholecystectomy Status post total replacement of right hip H/O colonoscopy History of removal of cyst History of eye surgery History of section Family History Father Myocardial infarction Diabetes Hypertension CVD (cardiovascular disease) Mother Hypertension Sister Hypertension Maternal Grandmother Medical history unknown Maternal Grandfather Glaucoma Paternal Grandmother Alzheimers disease Paternal Grandfather Diabetes Son Down syndrome Autism Myelofibrosis Family/Other Breast cancer Social History Household Members: Significant Other and Family Housing: House Are you a primary home health care case manager to a significant other at home: No Do you presently have visiting nurse or other home services: No Alcohol intake: current Alcohol intake frequency: holidays/special occasions only Alcohol type: beer and wine Patient Tobacco Use Status: Former Tobacco user Tobacco use type: Cigarette e-Cigarette/Vaping Use: Never Used Second Hand Smoke Exposure: No Advance Directives Date on File: 11/02/21 service: No Current occupational status: unemployed 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 Sexual orientation: Straight/Heterosexual Gender identity: Female Cognitive needs: No Hearing needs: No Vision needs: Yes (reading glasses) Review of Systems Const Denies chills, Denies daytime sleepiness, Denies difficulty sleeping, Denies fatigue, Denies fever(s), Denies frequent falls, Reports headache(s), Denies increased appetite, Denies poor appetite, Denies snoring, Denies weakness, Denies weight gain and Denies weight loss Eyes Denies loss of vision ENT Denies vertigo, Denies dizziness and Reports headache(s) Card Denies chest pain at rest, Denies chest pain with activity, Denies syncope, Denies leg edema and Denies palpitations Resp Denies snoring GI Denies constipation, Denies heartburn, Denies diarrhea and Denies nausea Denies urinary frequency, Denies urinary incontinence and Denies urinary urgency Musc Denies abnormal gait, Denies numbness and Denies tingling Skin/Breast Denies dry skin and Denies rash Neuro Denies abnormal gait, Denies vertigo, Denies dizziness, Denies syncope, Denies frequent falls, Reports headache(s), Denies lack of coordination, Denies loss of vision, Denies memory loss, Denies numbness, Denies restless legs, Denies seizure-like activity, Denies tingling, Denies paresthesias, Denies tremor(s) and Denies weakness Psych Denies anxiety, Denies depression, Denies auditory hallucinations, Denies memory loss, Denies visual hallucinations and Denies suicidal ideation Endo Denies fatigue and Denies palpitations Physical Exam Const Other: General Appearance:? normal, in no acute distress. Skin:? no rashes, no significant birthmarks. Heart:? S1, S2 normal, no murmurs. Lungs:? clear anteriorly and posteriorly. Extremities:? no edema. Psych:? alert, oriented, cognitive function intact, cooperative with exam. Neuro Other: Mental Status:?Normal attention, orientation, memory and affect.? Cranial Nerves:?Pupils are equal, round and reactive to light. External occular muscles are intact. Visual cutler are full. Face is symmetrical. Facial sensations are normal. Tongue is midline. Palate elevates symmetrically. Shoulder shrugging is normal. Hearing to bedside conversation is normal. Motor Examination:?Normal muscle tone, bulk and strength,?Deep tendon reflexes are 2+,?Plantars are flexor.? Sensory Exam:?....? Coordination:?No ataxia,?no titubation.? Gait Exam: Within normal limits. Cerebellar Signs:?[id number] and tryp-no-vmen is normal.? Extrapyramidal System:?No tremor, rigidity with normal facial expressions.? Pronator Drift:?Not present.? Involuntary Movements:?No tremors seen.? Speech:?Normal.? Results Reviewed Results Reviewed: CTA brain at [facility] in May 2023: 2mm L ICA supraclinoid infundibulum/aneurysm PSG at [facility] in 2016: PLMS arousal index 26.6. Assessment & Plan Assessment & Plan (1) Migraine without aura: Code(s): G43.009 - Migraine without aura, not intractable, without status migrainosus Category: Medical Qualifiers: Status migrainosus presence: without status migrainosus Intractability: not intractable Qualified Code(s): G43.009 - Migraine without aura, not intractable, without status migrainosus Plan: Continue rizatriptan 10mg 1 tablet as needed for migraine. (2) Cerebral aneurysm: Code(s): I67.1 - Cerebral aneurysm, nonruptured Category: Medical Plan: Last CTA brain 05/2023 with plan for repeat in 1 year, order placed. (3) RLS (restless legs syndrome): Code(s): G25.81 - Restless legs syndrome Category: Medical (4) Family history of cerebral aneurysm: Code(s): Z82.49 - Family history of ischemic heart disease and other diseases of the circulatory system Category: Medical (5) Exophoria: Code(s): H50.52 - Exophoria Category: Medical Plan Meds tried: topamax, propranalol, sumatriptan, amitryptiline, depakote, verapamil Orders: Orders CT angio head Today I67.1 - Cerebral aneurysm, nonruptured Blood Urea Nitrogen Today I67.1 - Cerebral aneurysm, nonruptured Creatinine Today I67.1 - Cerebral aneurysm, nonruptured Coding Level of Care Code Est Pt Level 4 (80568) Diagnoses Migraine without aura and without status migrainosus, not intractable G43.009 Status migrainosus presence: without status migrainosus Intractability: not intractable Cerebral aneurysm I67.1 RLS (restless legs syndrome) G25.81 Family history of cerebral aneurysm Z82.49 Exophoria H50.52
== END 2024-12-05 16:27 | disposition home or self-care (01) ==
LOC: HO.HSM 15:21
PROVIDERS: PCP Physician Assistant; Visit Provider Registered Nurse
DX: G43.009 Migraine without aura, not intractable, without status migrainosus (principal); I67.1 Cerebral aneurysm, nonruptured; G25.81 Restless legs syndrome; Z82.49 Family history of ischemic heart disease and other diseases of the circulatory system; H50.52 Exophoria
CPT/HCPCS: 99214

== ENCOUNTER → 2024-12-05 15:21 | Outpatient (BNVA) | payer OTHER, SELFPAY | PROVIDERS: PCP Physician Assistant; Visit Provider Registered Nurse | DX: G43.009 Migraine without aura, not intractable, without status migrainosus (principal); I67.1 Cerebral aneurysm, nonruptured; G25.81 Restless legs syndrome; H50.52 Exophoria; Z82.49 Family history of ischemic heart disease and other diseases of the circulatory system; Z87.891 Personal history of nicotine dependence | CPT/HCPCS: 99212 ==

== ENCOUNTER 2025-01-13 14:47 | Outpatient (REF) | payer OTHER, SELFPAY ==
--- OUTSIDE RECORDS SUMMARY | 2023-12-13 06:40 | XMS_ITS ---
Author Organization [facility] Address [address] [place] [address] Care Team Providers Care Metal Window Screen Assembler Name Role Phone Mendoza Norton Primary Care Provider Unavailab Gaurav Lo Jr [phone] REASON FOR VISIT Patient presents today for gastritis Encounters Encounter Location Date Provider Diagnosis [facility] 10 [facility] [address] [place] [address] 12/13/2023 Gaurav Nunez Jr Plan Of Treatment Next Appt Details Provider Name:Gaurav connor Jr, 01/15/2025 10:40:00 AM, [address] [facility], [address], [place], [address], Progress Notes * MELINA COOKDOB:1965 (59 yo F)Acc No.[id number]:12/13/2023 Progress Notes Patient: MELINA VALDOVINOS Provider: Sharee Nunez MD :1965 A ge:58 Y S ex:Female Date:12/13/2023 Address:[address] [place] [address] Pcp:Mendoza Norton Subjective: * Chief Complaints: * [...] 12/13/2023 Generated for Lupe flood/Renan/Ron on: 0 01/13/2025 06:04 PM EDT
--- OUTSIDE RECORDS SUMMARY | 2024-01-19 07:00 | XMS_ITS ---
Author Organization [facility] Address [address] [place] [address] [place] [address] Care Team Providers Care Torpedo Specialist Name Role Phone Mendoza Norton Primary Care Provider Unavailab Gaurav Lo Jr [phone] REASON FOR VISIT epigastric pain Encounters Encounter Location Date Provider Diagnosis [facility] Outpatient [address] [place] [id number] 01/19/2024 Gaurav Nunez Jr Epigastric pain R10.13 Assessments Encounter Date Diagnosis (ICD Code) Assessment Notes Treatment Notes Treatment Clinical Notes Section Notes 01/19/2024 Epigastric pain (ICD-10 - R10.13) Plan Of Treatment Next Appt Details Provider Name:Gaurav connor Jr, 01/15/2025 10:40:00 AM, 10 [facility], Suite [facility], [place], [address], Progress Notes * MELINA COOKDOB:1965 (59 yo F)Acc No.[id number]:01/19/2024 EGD/MAC Patient: MELINA VALDOVINOS Provider: Sharee Nunez MD :1965 A ge:58 Y S ex:Female Date:01/19/2024 Address:[address] [place] [address] Pcp:Mendoza Norton Subjective: * Chief Complaints: * [...] Date: 01/19/2024 Generated for Lupe flood/Renan/Evitaitting on: 01/13/2025 06:03 PM EDT
[2025-01-13 16:03] LABS: Blood Urea Nitrogen 9 mg/dL (9-16); Estimated Glomerular Filt Rate > 60
--- OUTSIDE RECORDS SUMMARY | 2025-01-13 18:04 | XMS_ITS | Encounter Summary ---
Author Organization [facility] Address [address] [place] [address] Phone Care Team Providers Care Branch Assistant Name Role Phone Mendoza Norton Primary Care Provider + Reason for Referral * Physical Therapy (Routine) - Closed Specialty Diagnoses / Procedures Referred By Jordana piper Referred To Contact Physical Therapy Diagnoses Encounter for rehabilitation Ferdinand Pruett MD Phone: tel: fax: [email or web address] [email or web address] [address] [place] [address] Phone: tel: Referral ID Status Reason Start Date Expiration Date Visits Re quested Visits Authorized [id number] Closed 03/20/2019 03/20/2020 9 9 Encounter Details Date Type Department Care Team (Latest Contact Info) Description 03/20/2019 Transcribe Orders [facility] [address] [place] [address] Ferdinand Pruett MD [address] [facility] [address] [place] [address] [email or web address] Encounter for rehabilitation (Primary Dx) Social History [...] Diagnoses Orde r Schedule Ambulatory referral to [facility] Physical Therapy Outpatient Referral Routine Encounter for rehabilitation Ordered: 03/20/2019 documented as of this encounter Visit Diagnoses Diagnosis Encounter for rehabilitation- Primary documented in this encounter Care Teams Branch Assistant Relationship Specialty Start Date End Date Mendoza Norton PA [address] [place] [address] PCP - General 03/20/19 documented as of this encounter Additional Source Comments The information contained in this document represents components of the legal health record. It is not the complete legal health record.[facility]
--- OUTSIDE RECORDS SUMMARY | 2025-01-13 18:04 | XMS_ITS | Patient Health Record ---
Author Organization [facility] Address [address] [place] [address] Care Team Providers Care Window Cleaner Name Role Phone Mendoza Norton Primary Care Provider Gaurav Porter Jr Unavailable [phone] Allergies Allergen (clinical drug ingredient) Drug/Non Drug Allergy documented on EMR Reaction Allergy Type Onset Date Status celecoxib CeleBREX Unknown Drug Allergy Active contrast dye (uncoded) Unknown Allergy Active Results Component Value Reference Range Notes Pathology Reviewed date:01/25/2024 08:25:40 AM Interpretation: Performing Lab:[facility], [address] [place] [id number] Notes/Report: Reason For Referral No Information Medications [...] Omeprazole 20 MG TAKE 1 CAPSULE BY [facility] EVERY DAY FOR 30 DAYS for 90 [...] Problem Status W/U Status Risk Notes Problem 555110131 Colon cancer screening (Z12.11) Active confirmed Problem [id number] Epigastric pain (R10.13) Active confirmed Problem History of polyp of colon (situation) (543299067) Personal history of colonic polyps (Z86.010) Active confirmed Problem 120384701 Encounter for long-term (current) use of NSAIDs (Z79.1) Active confirmed Encounters Encounter Location Date Provider Diagnosis [facility] [address] [place], [place] [id number] 01/19/2024 Gaurav Nunez Jr Epigastric pain R10.13 [facility] [address] [facility] [address] [place] [address] 01/25/2024 Gaurav Nunez Jr Assessments Encounter Date Diagnosis (ICD Code) Assessment Notes Treatment Notes Treatment Clinical Notes Section Notes 01/19/2024 Epigastric pain (ICD-10 - R10.13) Plan Of Treatment Future Test Test Name Order Date COLONOSCOPY 09/20/2017 UPPER GI ENDOSCOPY 11/30/2023 Next Appt Details Provider Name:Gaurav connor Jr, 01/15/2025 10:40:00 AM, [address] [facility] [address], [address], [place], [address], Insurance Providers Payer Name Payer Address Payer Phone Subscriber Number Group Number Insured Name Patient Relationship to Insured Coverage Start Date Coverage End Date [facility] [employer] [facility] [address] [address] [place], [place] [id number] MELINA COOK Self - patient is the insured MEDICAID OF [facility] [address] [place] [address] [id number] MELINA COOK Self - patient is the insured Medical (General) History Medical History History ICD Code asthma migraine headaches seasonal allergies Colonoscopy 06/20/23, hyperplastic polyp, ten-year followup Surgical History Surgery Date(Month/Year) section Strabismus repair 1989 Right hip replacement 11/26 Cholecystectomy 04/28
--- OUTSIDE RECORDS SUMMARY | 2025-01-13 18:04 | XMS_ITS | Clinical Summary ---
Author Organization [facility] Address [address] [place] [address] Phone Care Team Providers Care Field Property Loss Specialist Name Role Phone Mendoza Norton Primary Care Provider + Social History Tobacco Use Types Packs/Day Years Used Date Smoking Tobacco: Never Assessed Education Answer Date Recorded Are you interested in more education? Not on david e 09/02/2022 Are you concerned about learning? Not on file 09/02/2022 No 09/02/2022 No 09/02/2022 Digital Access Answer Date Recorded No 10/03/2022 No 10/03/2022 No 10/03/2022 Reliable internet access at home? Not on file 10/03/2022 Device with a working camera? Not on file Comments Unknown Sex and Gender Information Value Date Recorded Sex Assigned at Not on file Legal Sex Female 2:32 AM EDT Gender Identity Not on file Sexual Orientation Not on file Plan of Treatment Health Maintenance Due Date Last Done Comments LIPID PANEL 1967 DEPRESSION SCREENING 1979 SMOKING Hx and SMOKELESS TOBACCO SCREENING 1980 HEPATITIS C SCREENING 1985 HIV ONE-TIME SCREENING (18-65 YEARS) 1985 PAP SMEAR 1988 MAMMOGRAM 2007 COLOGUARD 2012 COLONOSCOPY 2012 COLORECTAL CANCER SCREENING 2012 FIT TEST 2012 FOBT 2012 SIGMOIDOSCOPY 2012 VIRTUAL COLONOSCOPY 2012 ZOSTER VACCINES (1 of 2) 2017 PNEUMOCOCCAL VACCINES (50+ years) (2 of 2 - PCV) 01/18/2022 01/18/2021, 03/24/2016 COVID-19 VACCINE ( season) 2024 09/17/2020, 08/26/2020 INFLUENZA VACCINE (#1) 2024 , 02/26/2019, 02/23/2018, Additional history exists Adult Td,Tdap Booster 01/13/2030 01/14/2020, 010 HEPATITIS A VACCINES Aged Out No long er eligible based on patient's age to complete this topic HIB VACCINES Aged Out No longer eligi ble based on patient's age to complete this topic MENINGOCOCCAL VACCINES (ACWY) Aged Out No longer eligible based on patient's age to complete this topic MENINGOCOCCAL VACCINES (B) Aged Out N o longer eligible based on patient's age to complete this topic Medical Devices Not on file Insurance ACO ACO ACO ACO ACO ACO ACO ACO ACO Care Teams Field Property Loss Specialist Relationship Specialty Start Date End Date Mendoza Norton PA [address] [place] [address] PCP - General 03/20/19 Additional Source Comments The information contained in this document represents components of the legal health record. It is not the complete legal health record.[facility]
== END 2025-01-13 14:48 | disposition home or self-care (01) ==
LOC: HO.LAB 14:47
PROVIDERS: PCP Physician Assistant; Visit Provider Registered Nurse
DX: I67.1 Cerebral aneurysm, nonruptured (principal)
CPT/HCPCS: 36415; 82565; 84520

== ENCOUNTER 2025-01-15 12:42 | Outpatient (REF) | payer OTHER, SELFPAY ==
--- OUTSIDE RECORDS SUMMARY | 2023-12-13 06:40 | XMS_ITS ---
Author Organization [facility] Address [address] [place] [address] Care Team Providers Care Clinical Pharmacy Manager Name Role Phone Mendoza Norton Primary Care Provider Unavailab Gaurav Lo Jr [phone] REASON FOR VISIT Patient presents today for gastritis Encounters Encounter Location Date Provider Diagnosis [facility] 10 [facility] [address] [place] [address] 12/13/2023 Gaurav Nunez Jr Plan Of Treatment Next Appt Details Provider Name:Gaurav connor Jr, 01/19/2026 10:40:00 AM, 10 [facility], [address], [place], [address], Progress Notes * MELINA COOKDOB:1965 (59 yo F)Acc No.[id number]:12/13/2023 Progress Notes Patient: MELINA VALDOVINOS Provider: Sharee Nunez MD :1965 A ge:58 Y S ex:Female Date:12/13/2023 Address:[address] [place] [address] Pcp:Mendoza Norton Subjective: * Chief Complaints: * [...] Nunez MD Date: 0 12/13/2023 Generated for uLpe flood/Renan/Ron on: 0 01/15/2025 03:38 PM EDT
--- OUTSIDE RECORDS SUMMARY | 2024-01-19 07:00 | XMS_ITS ---
Author Organization [facility] Address 10 [facility] [address] [place] [address] Care Team Providers Care Research Spec Name Role Phone Mendoza Norton Primary Care Provider Unavailab Gaurav Lo Jr [phone] REASON FOR VISIT epigastric pain Encounters Encounter Location Date Provider Diagnosis [facility] [place] [address] [place] [id number] 01/19/2024 Gaurav Nunez Jr Epigastric pain R10.13 Assessments Encounter Date Diagnosis (ICD Code) Assessment Notes Treatment Notes Treatment Clinical Notes Section Notes 01/19/2024 Epigastric pain (ICD-10 - R10.13) Plan Of Treatment Next Appt Details Provider Name:Gaurav connor Jr, 01/19/2026 10:40:00 AM, 10 [facility], Suite [facility], [place], [address], Progress Notes * MELINA COOKDOB:1965 (59 yo F)Acc No.[id number]:01/19/2024 EGD/MAC Patient: MELINA VALDOVINOS Provider: Sharee Nunez MD :1965 A ge:58 Y S ex:Female Date:01/19/2024 Address:[address] [place] [address] Pcp:Mendoza Norton Subjective: * Chief Complaints: * [...] Date: 01/19/2024 Generated for Lupe flood/Renan/Evitaitting on: 01/15/2025 03:38 PM EDT
--- NOTE | ~2025-01-15 | CT_ITS ---
CLINICAL HISTORY: I67.1 - Cerebral aneurysm, nonruptured CT Head without contrast. CT angiography head with contrast. 3D Postprocessing. CT angiography neck with contrast. 3D Postprocessing. Comparison: None provided Findings: HEAD CT: BRAIN: No acute infarct, hemorrhage, or mass effect. No abnormal atrophy. CSF SPACES: No hydrocephalus or effacement of basal cisterns. SKULL: No calvarial fracture. SINUSES: Minimal right maxillary and left sphenoid sinus mucosal thickening. Two ORBITS: Limited views are unremarkable. OTHER: Negative. HEAD CTA: ANT CIRCULATION: No large vessel occlusion or AVM. No significant interval change in small 2 mm inferiorly orientedinfundibulum versus aneurysm of the supraclinoid left ICA. POST CIRCULATION: No large vessel occlusion, AVM or aneurysm. See same day CT brain for anatomic interpretation. NECK CTA: AORTIC ARCH: Normal aortic arch. No high-grade stenosis. R COMMON CAROTID: No hemodynamically significant stenosis or dissection. R INTERNAL CAROTID: No hemodynamically significant stenosis or dissection. R EXTERNAL CAROTID: No hemodynamically significant stenosis or dissection. R VERTEBRAL: No high-grade stenosis or dissection. L COMMON CAROTID: No hemodynamically significant stenosis or dissection. L INTERNAL CAROTID: No hemodynamically significant stenosis or dissection. L EXTERNAL CAROTID: No hemodynamically significant stenosis or dissection. L VERTEBRAL: No high-grade stenosis or dissection. LUNG APEX: Limited views of the lung apices are clear. SOFT TISSUES: The salivary and thyroid glands are within normal limits. No paraspinous soft tissue abnormality. LIMITED SPINE: No evidence of fracture on limited views. IMPRESSION: 1. Unremarkable head CT. 2. CTA head demonstrates no significant change in a 2 mm infundibulum versus aneurysm of the supraclinoid ICA. 3. Patent neck CTA. This document has been electronically signed by: Desiree Rodriguez MD on 01/15/2025 23:58:39
[2025-01-15] MEDS: iohexoL 350 MG/ML 100 ML INFUS..BTL 75 ML IV (13:34)
--- OUTSIDE RECORDS SUMMARY | 2025-01-15 15:38 | XMS_ITS | Clinical Summary ---
Author Organization [facility] Address [address] [place] [address] Phone Care Team Providers Care Stave Bolt Equalizer Name Role Phone Mendoza Norton Primary Care [...] of 2 - PCV) 01/18/2022 01/18/2021, 03/24/2016 INFLUENZA VACCINE (#1) 2024 , 02/26/2019, 02/23/2018, Additional history exists COVID-19 VACCINE ( season) 2025 09/17/2020, 08/26/2020 Adult Td,Tdap Booster 01/13/2030 01/14/2020, 010 HEPATITIS [...] ACO ACO ACO ACO ACO Care Teams Stave Bolt Equalizer Relationship Specialty Start Date End Date Mendoza Norton PA [address] [place] [address] PCP - General 03/20/19 Additional Source Comments The information contained in this document represents components of the legal health record. It is not the complete legal health record.[facility]
--- OUTSIDE RECORDS SUMMARY | 2025-01-15 15:38 | XMS_ITS | Encounter Summary ---
Author Organization [facility] Address [address] [place] [address] Phone Care Team Providers Care Firmware Engineer Name Role Phone Mendoza Norton Primary Care Provider + Reason for Referral * Physical Therapy (Routine) - Closed Specialty Diagnoses / Procedures Referred By Jordana piper Referred To Contact Physical Therapy Diagnoses Encounter for rehabilitation Ferdinand Pruett MD Phone: tel: fax: mailto:[email or web address] [address] [place] [address] Phone: tel: Referral ID Status Reason Start Date Expiration Date Visits Re quested Visits Authorized [id number] Closed 03/20/2019 03/20/2020 9 9 Encounter Details Date Type Department Care Team (Latest Contact Info) Description 03/20/2019 Transcribe Orders [facility] [address] [place] [address] Ferdinand Pruett MD [address] [facility] [address] [place] [address] [email or web address] Encounter for rehabilitation (Primary Dx) Social History [...] Diagnoses Orde r Schedule Ambulatory referral to [facility] Physical Therapy Outpatient Referral Routine Encounter for rehabilitation Ordered: 03/20/2019 documented as of this encounter Visit Diagnoses Diagnosis Encounter for rehabilitation- Primary documented in this encounter Care Teams Firmware Engineer Relationship Specialty Start Date End Date Mendoza Norton PA [address] [place] [address] PCP - General 03/20/19 documented as of this encounter Additional Source Comments The information contained in this document represents components of the legal health record. It is not the complete legal health record.[facility]
--- OUTSIDE RECORDS SUMMARY | 2025-01-15 15:38 | XMS_ITS | Patient Health Record ---
Author Organization [facility] Address [address] [place] [address] Care Team Providers Care Center Medical And Lab Director Name Role Phone Mendoza Norton Primary Care Provider UnavailGaurav Acosta Jr Unavailable Allergies Allergen (clinical drug ingredient) Drug/Non Drug Allergy documented on EMR Reaction Allergy Type Onset Date Status celecoxib CeleBREX Unknown Drug Allergy Active contrast dye (uncoded) Unknown Allergy Active Results Component Value Reference Range Notes Pathology Reviewed date:01/25/2024 08:25:40 AM Interpretation: Performing Lab:[facility], [address] [place] [phone] Notes/Report: Reason For Referral No Information Medications Medication SIG (Take, Route, Frequency, Duration) Notes Start Date End Date Status Vitamin D in winter Active Rizatriptan Benzoate 10 MG TAKE 1 TABLET BY MOUTH EVERY DAY FOR 30 DAYS Oral for 30 prn Active Super B Complex - Orally Ac tive Ibuprofen as needed Active Albuterol Sulfate HFA 108 (90 Base) MCG/ACT 1 puff as needed Inhalation every 4 hrs Not-Takin g Melatonin 3 MG 1 tablet at bedtime as needed with food Orally as needed Active Progesterone 100 MG Oral for 90 Days Active Testosterone 25 MG/2.5GM (1%) 2 packets to skin in the morning to shoulder, upper arms or abdomen Transdermal Once a day 01/15/2025 Active Ventolin HFA 108 (90 Base) MCG/ACT Inhalation for 25 Active Omeprazole 20 MG TAKE 1 CAPSULE BY [facility] EVERY DAY FOR 30 DAYS for 90 Active buPROPion HCl ER (XL) 300 MG Oral for 30 Active Immunizations Vaccine Route Administration Date Status Comme nts Influenza Unknown 04/07/2023 Administered Social History Tobacco Use: Social History Observation Description Date Details (start date - stop date) Former Smoker NA - NA Tobacco Use/Smoking Question Answer Notes Patient is a former smoker How long has it been since you last smoked? > 10 years AUDIT-C (Standard) Question Answer Notes Did you [...] Problem Status W/U Status Risk Notes Problem 798839852 Colon cancer screening (Z12.11) Active confirmed Problem 52875293 Epigastric pain (R10.13) Active confirmed Problem History of polyp of colon (situation) (989103187) Personal history of colonic polyps (Z86.010) Active confirmed Problem 288803957 Encounter for long-term (current) use of NSAIDs (Z79.1) Active confirmed Vital Signs Temperature 97.3 degrees Fahrenheit 01/15/2025 Blood pressure diastolic 01 mm Hg 01/15/2025 Height 58.5 in 01/15/2025 Blood pressure systolic 001 mm Hg 01/15/2025 Weight 117.8 lbs 01/15/2025 BMI 24.2 kg/m2 01/15/2025 Encounters Encounter Location Date Provider Diagnosis [facility] [address] [place], [place] [phone] 01/19/2024 Gaurav Nunez Jr Epigastric pain R10.13 [facility] [address] [place] [phone] 01/15/2025 Gaurav Nunez Jr [facility] [address] [place] [phone] 01/25/2024 Gaurav Nunez Jr Assessments Encounter Date Diagnosis (ICD Code) Assessment Notes Treatment Notes Treatment Clinical Notes Section Notes 01/19/2024 Epigastric pain (ICD-10 - R10.13) Plan Of Treatment Future Test Test Name Order Date COLONOSCOPY 09/20/2017 UPPER GI ENDOSCOPY 11/30/2023 Next Appt Details Provider Name:Gaurav Sana connor Jr, 01/19/2026 10:40:00 AM, [address] [place] [address], [address], [place], [address], Insurance Providers Payer Name Payer Address Payer Phone Subscriber Number Group Number Insured Name Patient Relationship to Insured Coverage Start Date Coverage End Date [facility] [address] [address] [place], [place] [id number] MELINA COOK Self - patient is the insured MEDICAID OF [employer] [facility] [address] [place] [address] [id number] MELINA COOK Self - patient is the insured Medical (General) History Medical History History ICD Code asthma migraine headaches seasonal allergies Colonoscopy 06/20/23, hyperplastic polyp, ten-year followup Surgical History Surgery Date(Month/Year) Cholecystectomy 04/28 Right hip replacement 11/26 Strabismus repair 1989 section
== END 2025-01-15 12:43 | disposition home or self-care (01) ==
LOC: HO.CT 12:42
PROVIDERS: PCP Physician Assistant; Visit Provider Registered Nurse
DX: I67.1 Cerebral aneurysm, nonruptured (principal)
CPT/HCPCS: 70496; Q9967

== ENCOUNTER → 2025-01-15 12:43 | Outpatient (BNV) | payer OTHER, SELFPAY | PROVIDERS: PCP Physician Assistant; Visit Provider Student in an Organized Health Care Education/Training Program | DX: I67.1 Cerebral aneurysm, nonruptured (principal) | CPT/HCPCS: 70496 ==

== ENCOUNTER 2025-01-18 12:23 | Outpatient (AMB) | payer OTHER, SELFPAY ==
--- OUTSIDE RECORDS SUMMARY | 2023-12-13 06:40 | XMS_ITS ---
Author Organization [facility] Address [address] [place] [address] Care Team Providers Care Collar Packer Name Role Phone Mendoza Norton Primary Care Provider Unavailab Gaurav Lo Jr [phone] REASON FOR VISIT Patient presents today for gastritis Encounters Encounter Location Date Provider Diagnosis [facility] [address] [facility] [address] [place] [address] 12/13/2023 Gaurav Nunez Jr Plan Of Treatment Next Appt Details Provider Name:Gaurav connor Jr, 01/19/2026 10:40:00 AM, [address] [facility], [address], [place], [address], Progress Notes * MELINA COOKDOB:1965 (59 yo F)Acc No.[id number]:12/13/2023 Progress Notes Patient: MELINA VALDOVINOS Provider: Sharee Nunez MD :1965 A ge:58 Y S ex:Female Date:12/13/2023 Address:[address] [place] [address] Pcp:Mendoza Norton Subjective: * Chief Complaints: * [...] 0 12/13/2023 Generated for Lupe flood/Renan/Ron on: 0 01/18/2025 12:25 PM EDT
--- OUTSIDE RECORDS SUMMARY | 2024-01-19 07:00 | XMS_ITS ---
Author Organization [facility] Address [address] [place] [address] [place] [address] Care Team Providers Care Wireless Retail Manager Name Role Phone Mendoza Norton Primary Care Provider Unavailab Gaurav Lo Jr [phone] REASON FOR VISIT epigastric pain Encounters Encounter Location Date Provider Diagnosis [facility] Outpatient [address] [place] [phone] 01/19/2024 Gaurav Nunez Jr Epigastric pain R10.13 Assessments Encounter Date Diagnosis (ICD Code) Assessment Notes Treatment Notes Treatment Clinical Notes Section Notes 01/19/2024 Epigastric pain (ICD-10 - R10.13) Plan Of Treatment Next Appt Details Provider Name:Gaurav connor Jr, 01/19/2026 10:40:00 AM, 10 [facility], Suite [facility], [place], [address], Progress Notes * MELINA COOKDOB:1965 (59 yo F)Acc No.[id number]:01/19/2024 EGD/MAC Patient: MELINA VALDOVINOS Provider: Sharee Nunez MD :1965 A ge:58 Y S ex:Female Date:01/19/2024 Address:[address] [place] [address] Pcp:Mendoza Norton Subjective: * Chief Complaints: * [...] Pending * Provider: Sharee Nunez MD Date: 01/19/2024 Generated for Lupe flood/Renan/Evitaitting on: 01/18/2025 12:25 PM EDT
--- OUTSIDE RECORDS SUMMARY | 2025-01-15 06:40 | XMS_ITS ---
Author Organization [facility] Address [address] [place] [address] Care Team Providers Care Sample Shoe Inspector And Reworker Name Role Phone Mendoza Norton Primary Care Provider UnavailGaurav Acosta Jr Unavailable [phone] Allergies Allergen (clinical drug ingredient) Drug/Non Drug Allergy documented on EMR Reaction Allergy Type Onset Date Status celecoxib CeleBREX Unknown Drug Allergy Active contrast dye (uncoded) Unknown Allergy Active REASON FOR VISIT Patient presents today for EPIGASTRIC PAIN Medications Medication SIG (Take, Route, Frequency, Duration) Notes Start Date End Date Status Super B Complex - Orally Ac tive Ibuprofen as needed Active Albuterol Sulfate HFA 108 (90 Base) MCG/ACT 1 puff as needed Inhalation every 4 hrs Not-Takin g Melatonin 3 MG 1 tablet at bedtime as needed with food Orally as needed Active Testosterone 25 MG/2.5GM (1%) 2 packets to skin in the morning to shoulder, upper arms or abdomen Transdermal Once a day 01/15/2025 Active Rizatriptan Benzoate 10 MG TAKE 1 TABLET BY MOUTH EVERY DAY FOR 30 DAYS Oral for 30 prn Active Progesterone 100 MG Oral for 90 Days Active Ventolin HFA 108 (90 Base) MCG/ACT Inhalation for 25 Active Omeprazole 20 MG TAKE 1 CAPSULE BY [facility] EVERY DAY FOR 30 DAYS for 90 Active buPROPion HCl ER (XL) 300 MG Oral for 30 Active Vitamin D in winter Active Social History Tobacco Use: Social History Observation [...] Never (0 point) Points 1 Interpretation Negative AUDIT-C (Standard) Question Answer Notes Did you have a [...] (0 point) How often did you have six o r more drinks on one occasion in the past year? Never (0 point) Points 1 Interpretation Negative Section Notes: former smoker over 17 years ago Problems Problem Type SNOMED Code ICD Code Onset Dates Problem Status W/U Status Risk Notes Problem Gastroesophageal reflux disease (142191965) Gastroesophageal reflux disease (K21.9) Active confirmed Vital Signs Temperature 97.3 degrees Fahrenheit 01/16/20 25 Blood pressure systolic 001 mm Hg 01/16/20 25 Blood pressure diastolic 01 mm Hg 025 Height 58.5 in 01/15/2025 Weight 117.8 lbs 01/15/2025 BMI 24.2 kg/m2 01/15/2025 Encounters Encounter Location Date Provider Diagnosis [facility] [address] [facility] [address] [place] [phone] 01/15/2025 Gaurav Nunez Jr Gastroesophageal reflux disease K21.9 and Colon cancer screening Z12.11 Assessments Encounter Date Diagnosis (ICD Code) Assessment Notes Treatment Notes Treatment Clinical Notes Section Notes 01/15/2025 Gastroesophageal reflux disease (ICD-10 - K21.9) Reflux symptoms are under good control on omeprazole 20 mg daily. We discussed diet, lifestyle modifications, and weight management regarding the treatment of reflux. Weight loss should help her symptoms. She still can use OTC antacids as needed her nighttime symptoms and breakthrough reflux. We discussed this today. She is up-to-date on colorectal cancer screening. Follow-up will be in 1 year. 01/15/2025 Colon cancer screening (ICD-10 - Z12.11) Reflux symptoms are under good control on omeprazole 20 mg daily. We discussed diet, lifestyle modifications, and weight management regarding the treatment of reflux. Weight loss should help her symptoms. She still can use OTC antacids as needed her nighttime symptoms and breakthrough reflux. We discussed this today. She is up-to-date on colorectal cancer screening. Follow-up will be in 1 year. Plan Of Treatment Next Appt Details Follow Up: 1 Year, Reason: Provider Name:Gaurav connor , 01/19/2026 10:40:00 AM, [address] [place] [address], [facility], [place], [address], Progress Notes * MELINA COOKDOB:1965 (59 yo F)Acc No.[id number]:01/15/2025 Progress Notes Patient: MELINA VALDOVINOS Provider: Sharee Nunez MD :1965 A ge:59 Y S ex:Female Date:01/15/2025 Address:[address] [place], [place] [phone] Pcp:Mendoza Norton Subjective: * Chief Complaints: * 1 . Patient presents today for EPIGASTRIC PAIN. * HPI: N ew symptom(s): Melina is a pleasant 59-year-old woman seen today in follow-up. She was last seen in November of last year. She underwent upper endoscopy for epigastric pain in January which was normal and showed no Summers's esophagus or H. pylori. She continues on omeprazole 20 mg daily which she is taking every day. She gets occasional breakthrough reflux but no nausea or vomiting. She uses rwua-nyb-tlbijzs Tums as needed for her symptoms. She is eating better and has lost some weight by doing intermittent fasting. There is no dysphagia, hematemesis, or melena. She is up-to-date on colorectal cancer screening. * Medical History: A sthma, Migraine headaches, Seasonal allergies, Colonoscopy 06/20/23, hyperplastic polyp, ten-year followup. * Surgical History: C esarean section , Strabismus repair 1989, Right hip replacement 11/26, Cholecystectomy 04/28. * Hospitalization/Major Diagno stic Procedure: D enies Past Hospitalization. * Family History: F ather: , diagnosed with Diabetes, HTN (hypertension). M other: alive, diagnosed with HTN (hypertension). S iblings: diagnosed with HTN (hypertension). no known hx of colon cancer polyps or liver ds. * Social History: T obacco Use: T obacco Use/Smoking P atient is a f ormer smoker, H ow long has it been since you last smoked? > 10 years. D rugs/Alcohol: A lcohol Screen D id you have a drink containing alcohol in the past year? Y es, H ow often did you have a drink containing alcohol in the past year? M onthly or less (1 point), How many drinks did you have on a typical day when you were drinking in the past year? 1 or 2 drinks (0 point), H ow often did you have 6 or more drinks on one occasion in the past year??Never (0 point), P oints 1 , I nterpretation N egative. M iscellaneous: M arital status: . Occupation: home. D rug/Alcohol: A JOSEPHINE-C (Standard) D id you have a drink containing alcohol in the past year? Y es,?How often did you have a drink containing alcohol in the past year? M onthly or less (1 point), H ow many drinks did you have on a typical day when you were drinking in the past year? 1 or 2 drinks (0 point), H ow often did you have six or more drinks on one occasion in the past year? N ever (0 point), P oints 1 , I nterpretation N egative. f ormer smoker over 17 years ago. * Medications: T aking Melatonin 3 MG Tablet 1 tablet at bedtime as needed with food Orally as needed , Taking Super B Complex - Tablet Orally , Taking Ibuprofen as needed , Taking Vitamin D in winter , Taking Rizatriptan Benzoate 10 MG Tablet TAKE 1 TABLET BY MOUTH EVERY DAY FOR 30 DAYS Oral , Notes to Pharmacist: prn, Taking buPROPion HCl ER (XL) 300 MG Tablet Extended Release 24 Hour Oral , Taking Ventolin HFA 108 (90 Base) MCG/ACT Aerosol Solution Inhalation , Taking Omeprazole 20 MG Capsule Delayed Release TAKE 1 CAPSULE BY MOUTH EVERY DAY FOR 30 DAYS , Taking Progesterone 100 MG Capsule Oral , Taking Testosterone 25 MG/2.5GM (1%) Gel 2 packets to skin in the morning to shoulder, upper arms or abdomen Transdermal Once a day , Not-Taking/PRN Albuterol Sulfate HFA 108 (90 Base) MCG/ACT Aerosol Solution 1 puff as needed Inhalation every 4 hrs , Medication List reviewed and reconciled with the patient * Allergies: C eleBREX, contrast dye. Objective: * Vitals: W t:117.8lbs, Ht: 58.5 in, BMI:24.2Index, BP:001/01mm Hg, Temp:97.3, Wt-k.43. * Physical Examination: O n examination today, she appears well. Skin is anicteric. Lungs are clear. Heart shows a regular rate and rhythm. Abdomen is soft without focal masses or tenderness. We reviewed her weight and BMI today and discussed dietary issues. Assessment: * Assessment: 1. G astroesophageal reflux disease - K21.9 (Primary) 2 . C olon cancer screening - Z12.11 Reflux symptoms are under go od control on omeprazole 20 mg daily. We discussed diet, lifestyle modifications, and weight management regarding the treatment of reflux. Weight loss should help her symptoms. She still can use OTC antacids as needed her nighttime symptoms and breakthrough reflux. We discussed this today. She is up-to-date on colorectal cancer screening. Follow-up will be in 1 year. Plan: * Treatment: * Procedure Codes: 3 017F COLORECTAL CA SCREEN DOC REV, 1036F TOBACCO NON-USER, G8785 BP SCR NOT PRFRM REC REASON NOS * Preventive Medicine: Urinary Incontinence: U rinary Incontinence A ssessment: P resent, P victor hugo of care documented: N o, reason not specified. Screenings: F all Risk Screening F all Risk Assessment: O ne fall without injury in the past year, S creening: O ne fall without injury in the past year, P victor hugo of Care: N ot documented, no reason specified. * Follow Up: 1 Year * * Sign off status: Completed true * Provider: Sharee Nunez MD Date: 0 01/15/2025 Generated for Lupe flood/Renan/eTransmitting on: 0 01/18/2025 12:25 PM EDT History and Physical Notes * HPI (History of Present Illness) Category Sub-Category Detail Notes Category Not es New symptom(s) Melina is a pleasant 59-year-old woman seen today in follow-up. She was last seen in November of last year. She underwent upper endoscopy for epigastric pain in January which was normal and showed no Summers's esophagus or H. pylori. She continues on omeprazole 20 mg daily which she is taking every day. She gets occasional breakthrough reflux but no nausea or vomiting. She uses ajum-geg-ygiyula Tums as needed for her symptoms. She is eating better and has lost some weight by doing intermittent fasting. There is no dysphagia, hematemesis, or melena. She is up-to-date on colorectal cancer screening. Physical Examination Category Sub-Category Detail Notes Section Note s On examination today, she appears well. Skin is anicteric. Lungs are clear. Heart shows a regular rate and rhythm. Abdomen is soft without focal masses or tenderness. We reviewed her weight and BMI today and discussed dietary issues.
--- OUTSIDE RECORDS SUMMARY | 2025-01-18 12:25 | XMS_ITS | Patient Health Record ---
Author Organization [facility] Address [address] [place] [address] Care Team Providers Care Base Filler Operator Name Role Phone Mendoza Norton Primary Care Provider UnavailGaurav Acosta Jr Unavailable Allergies Allergen (clinical drug ingredient) Drug/Non Drug Allergy documented on EMR Reaction Allergy Type Onset Date Status celecoxib CeleBREX Unknown Drug Allergy Active contrast dye (uncoded) Unknown Allergy Active Results Component Value Reference Range Notes Pathology Reviewed date:01/25/2024 08:25:40 AM Interpretation: Performing Lab:[facility], [address] [place] [phone] Notes/Report: Reason For Referral No Information Medications [...] 20 MG TAKE 1 CAPSULE BY [facility] EVERY DAY FOR 30 DAYS for [...] Problem Status W/U Status Risk Notes Problem 586711500 Colon cancer screening (Z12.11) Active confirmed Problem 92630913 Epigastric pain (R10.13) Active confirmed Problem History of polyp of colon (situation) (493374057) Personal history of colonic polyps (Z86.010) Active confirmed Problem Gastroesophageal reflux disease (988640010) Gastroesophageal reflux disease (K21.9) Active confirmed Problem 188088402 Encounter for long-term (current) use of NSAIDs (Z79.1) Active confirmed Vital Signs Temperature 97.3 degrees Fahrenheit 01/15/2025 Blood pressure diastolic 01 mm Hg 01/15/2025 Height 58.5 in 01/15/2025 Blood pressure systolic 001 mm Hg 01/15/2025 Weight 117.8 lbs 01/15/2025 BMI 24.2 kg/m2 01/15/2025 Encounters Encounter Location Date Provider Diagnosis [facility] [place] [address] [place], [place] [phone] 01/19/2024 Gaurav Nunez Jr Epigastric pain R10.13 [facility] [address] [place] [phone] 01/15/2025 Gaurav Nunez Jr Gastroesophageal reflux disease K21.9 and Colon cancer screening Z12.11 [facility] [address] [place] [phone] 01/25/2024 Gaurav Nunez Jr Assessments Encounter Date Diagnosis (ICD Code) Assessment Notes Treatment Notes Treatment Clinical Notes Section Notes 01/19/2024 Epigastric pain (ICD-10 - R10.13) 01/15/2025 Colon cancer screening (ICD-10 - Z12.11) [...] Follow-up will be in 1 year. 01/15/2025 Gastroesophageal reflux disease (ICD-10 - K21.9) [...] be in 1 year. Plan Of Treatment Future Test Test Name Order Date COLONOSCOPY 09/20/2017 UPPER GI ENDOSCOPY 11/30/2023 Next Appt Details Provider Name:Gaurav connor Jr, 01/19/2026 10:40:00 AM, [address] [place] [address], [address], [place], [address], Insurance Providers Payer Name Payer Address Payer Phone Subscriber Number Group Number Insured Name Patient Relationship to Insured Coverage Start Date Coverage End Date [facility] [address] [address] [place], [place] [id number] MELINA COOK Self - patient is the insured MEDICA[facility] [address] [place] [address] [id number] MELINA COOK Self - patient is the insured Medical (General) History Medical History History ICD Code asthma migraine headaches seasonal allergies Colonoscopy 06/20/23, hyperplastic polyp, ten-year followup Surgical History Surgery Date(Month/Year) Cholecystectomy 04/28 Right hip replacement 11/26 Strabismus repair 1989 section
--- OUTSIDE RECORDS SUMMARY | 2025-01-18 12:25 | XMS_ITS | Clinical Summary ---
Author Organization [facility] Address [address] [place] [address] Phone Care Team Providers Care Shellfish Grower Name Role Phone Mendoza Norton Primary Care [...] ACO ACO ACO ACO ACO Care Teams Shellfish Grower Relationship Specialty Start Date End Date Mendoza Norton PA [address] [place] [address] PCP - General 03/20/19 Additional Source Comments The information contained in this document represents components of the legal health record. It is not the complete legal health record.[facility]
--- OUTSIDE RECORDS SUMMARY | 2025-01-18 12:25 | XMS_ITS | Encounter Summary ---
Author Organization [facility] Address [address] [place] [address] Phone Care Team Providers Care Mill Beam Fitter Name Role Phone Mendoza Norton Primary Care Provider + Reason for Referral * Physical Therapy (Routine) - Closed Specialty Diagnoses / Procedures Referred By Jordana piper Referred To Contact Physical Therapy Diagnoses Encounter for rehabilitation Ferdinand Pruett MD Phone: tel: fax: mailto:[email or web address] [employer] [facility] [address] [place] [address] Phone: tel: Referral ID Status Reason Start Date Expiration Date Visits Re quested Visits Authorized [id number] Closed 03/20/2019 03/20/2020 9 9 Encounter Details Date Type Department Care Team (Latest Contact Info) Description 03/20/2019 Transcribe Orders [facility] Rehabilitation Services [address] [place] [address] Ferdinand Pruett MD [facility] [address] [place] [address] [email or web address] Data Encounter for rehabilitation (Primary Dx) Social History [...] Diagnoses Orde r Schedule Ambulatory referral to [facility] Physical Therapy Outpatient Referral Routine Encounter for rehabilitation Ordered: 03/20/2019 documented as of this encounter Visit Diagnoses Diagnosis Encounter for rehabilitation- Primary documented in this encounter Care Teams Mill Beam Fitter Relationship Specialty Start Date End Date Mendoza Norton PA [address] [place] [address] PCP - General 03/20/19 documented as of this encounter Additional Source Comments The information contained in this document represents components of the legal health record. It is not the complete legal health record.[facility]
[2025-01-18 12:52] VITALS: BP 90/62; PULSE 72; RESP 15; TEMP 36.7; O2SAT 98; BMI 24.5
--- NOTE | 2025-01-18 12:52 | AM.OFFWIN_ITS ---
Intake Vital Signs 01/18/25 12:52 Height 4 ft 10 in Weight 117 lb BMI 24.5 BP 90/62 Blood Pressure Location Lt brachial Position Sitting Respiration 15 Pulse 72 Pulse Source Pulse Oximeter Temp 98.0 F Temp Source Oral Pulse Oximetry (%) 98 Oxygen Delivery Method Room Air Intake Visit Reasons: EP-UTI Intake Note: Pt is here today c/o frequency upon urination and foul odor Patient Tobacco Use Status: Former Tobacco user Allergies celecoxib (From Celebrex) Allergy (Intermediate, Verified 01/18/25 12:59) Hives Iodinated Contrast Media (Contrast Dye) Allergy (Verified 01/18/25 12:59) Hives HPI HPI Comments History of Present Illness Details This is a 59-year-old female presenting for evaluation of burning at the end of her stream of urine that has been intermittent over the past 3 days. Patient does report increased urinary frequency and vaginal ?spotting?. Patient states that she is taking hormone replacement therapy for her menopausal symptoms however these medications are not new. She denies having any fevers, chills, abdominal pain or overt vaginal discharge. [facility] Medical History (Updated 01/18/25 @ 13:28 by Fanny Ceballos PA-C) Cerebral aneurysm Exophoria Periodic limb movement disorder Migraine without aura RLS (restless legs syndrome) Hypotension Arthritis Refusal of blood transfusions as patient is Hinduism Osteoarthritis of right hip Hx of migraine headaches Asthma MDD (major depressive disorder), recurrent episode, moderate Surgical History Status post laparoscopic cholecystectomy Status post total replacement of right hip H/O colonoscopy History of removal of cyst History of eye surgery History of section Family History Father Myocardial infarction Diabetes Hypertension CVD (cardiovascular disease) Mother Hypertension Sister Hypertension Maternal Grandmother Medical history unknown Maternal Grandfather Glaucoma Paternal Grandmother Alzheimers disease Paternal Grandfather Diabetes Son Down syndrome Autism Myelofibrosis Family/Other Breast cancer Social History Household Members: Significant Other and Family Housing: House Are you a primary urgent care nurse practitioner to a significant other at home: No Do you presently have visiting nurse or other home services: No Alcohol intake: current Alcohol intake frequency: holidays/special occasions only Alcohol type: beer and wine Patient Tobacco Use Status: Former Tobacco user Tobacco use type: Cigarette e-Cigarette/Vaping Use: Never Used Second Hand Smoke Exposure: No Advance Directives Date on File: 11/02/21 service: No Current occupational status: unemployed 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 Sexual orientation: Straight/Heterosexual Gender identity: Female Cognitive needs: No Hearing needs: No Vision needs: Yes (reading glasses) Review of Systems Const All systems reviewed & are unremarkable except as noted in HPI and below Denies body aches, Denies chills, Denies fatigue and Denies fever(s) GI Denies abdominal pain, Denies diarrhea, Denies nausea and Denies vomiting Reports abnormal vaginal bleeding ( spotting ), Denies urinary frequency, Denies post void dribbling, Denies genital pruritis, Reports dysuria (at end of urine stream), Denies urinary incontinence, Denies vaginal discharge, Denies vaginal dryness and Denies vaginal pruritus Musc Reports no additional complaints Skin/Breast Reports system reviewed and no additional complaints, except as documented Psych Reports no additional complaints Endo Denies fatigue Physical Exam Vital Signs: Last Vital Signs Temp 98.0 F 01/18/25 12:52 Pulse 72 01/18/25 12:52 Resp 15 01/18/25 12:52 BP 90/62 01/18/25 12:52 Pulse Ox 98 01/18/25 12:52 Oxygen Delivery Method Room Air 01/18/25 12:52 BMI result Body Mass Index 24.5 Const General: cooperative, healthy appearing, comfortable, no acute distress, well developed, alert, awake and Physically active; No acute distress or ill appearing Nutritional Appearance: well nourished Orientation/consciousness: patient oriented x3 Limitations: no limitations GI Inspection: Yes normal to inspection Palpation (GI): Soft to palpation, nontender and no guarding General: Yes Bimanual renal exam normal bilaterally and Yes bladder normal to palpation External Female Exam: normal external appearance, normal appearance of the urethra, No erythema, No externally tender, No external swelling, No lesion, No urethral discharge and other (no overt vaginal discharge; speculum examination deferred) Bimanual exam- vagina & uterus: bladder normal to palpation Skin General skin exam: no rashes or lesions noted Neuro General: patient oriented x3 Psych Appearance: grossly normal Mental Status: mental status grossly normal Insight: Good insight present (Psych) Judgement: Good judgement present (Psych) Results AMB Urinalysis, Automated UA Leukoctes 70 Promise/uL Last Edit by Cintia Marroquin CMA on 01/18/25 13:08 UA Nitrite Negative Last Edit by Cintia Marroquin CMA on 01/18/25 13:08 UA Urobilinogen 0.2 mg/dL Last Edit by Cintia Marroquin CMA on 01/18/25 13:08 UA Protein 0 mg/dL Last Edit by Cintia Marroquin CMA on 01/18/25 13:08 UA pH 6.0 Last Edit by Cintia Marroquin CMA on 01/18/25 13:08 UA Blood 200 Lion/uL Last Edit by Cintia Marroquin CMA on 01/18/25 13:08 UA Specific [place] 1.010 Last Edit by Cintia Marroquin CMA on 01/18/25 13:08 UA Ketone Negative Last Edit by Cintia Marroquin CMA on 01/18/25 13:08 UA Bilirubin 0 mg/dL Last Edit by Cintia Marroquin CMA on 01/18/25 13:08 UA Glucose 0 mg/dL Last Edit by Cintia Marroquin CMA on 01/18/25 13:08 Assessment & Plan Assessment & Plan (1) Dysuria: Comment: Upon review of previous urinalyses and urine cultures, antibiotic therapy is deferred at this time and a urine culture is pending. Bacterial vaginosis panel will also be obtained. Code(s): R30.0 - Dysuria Plan: Patient will utilize Pyridium OTC as needed for her urinary discomfort until her urine culture is resulted. (2) Postmenopausal bleeding: Comment: Patient has not yet discussed with her pilot fuel engineer her postmenopausal ?spotting?. She has follow up scheduled in April 2025. Code(s): N95.0 - Postmenopausal bleeding Plan: Patient is to call her pilot fuel engineer on Monday to inform them of her postmenopausal bleeding. Orders: Orders AMB Urinalysis Automated Today Z13.9 - Encounter for screening, unspecified Bacterial Vaginosis Panel Today R30.0 - Dysuria Urine Culture Today R30.0 - Dysuria Coding Level of Care Code Est Pt Level 3 (97430) Diagnoses Dysuria R30.0 Postmenopausal bleeding N95.0 Time Spent (min) 25
== END 2025-01-18 13:30 | disposition home or self-care (01) ==
LOC: HO.HMCWIC 12:23
PROVIDERS: PCP Physician Assistant; Visit Provider Physician Assistant
DX: R30.0 Dysuria (principal); N95.0 Postmenopausal bleeding; Z13.9 Encounter for screening, unspecified

== ENCOUNTER 2025-01-18 12:23 | Outpatient (REF) | payer OTHER, SELFPAY ==
[2025-01-19 09:32] LABS: Bacterial Vaginosis PCR NEGATIVE (Negative); Candida Group PCR NOT DETECTED (Not Detect); Candida glab krusei PCR NOT DETECTED (Not Detect); Trichomonas vaginalis PCR NOT DETECTED (Not Detect)
== END 2025-01-18 12:24 | disposition home or self-care (01) ==
LOC: HO.LAB 12:23
PROVIDERS: PCP Physician Assistant; Visit Provider Physician Assistant
DX: R30.0 Dysuria (principal); N95.0 Postmenopausal bleeding; Z11.2 Encounter for screening for other bacterial diseases; Z13.89 Encounter for screening for other disorder
CPT/HCPCS: 81003; 81515; 87086; 99212

== ENCOUNTER 2025-02-26 13:45 | Outpatient (REF) | payer OTHER, SELFPAY ==
--- NOTE | ~2025-02-26 | XR_ITS ---
EXAMINATION: XR HIP, LEFT CLINICAL INFORMATION: M25.552 - Pain in left hip COMPARISON: Right hip x-ray September 29, 2021 TECHNIQUE: AP upright, AP supine, and frog-leg lateral views of the left hip. FINDINGS: Total hip replacement has been performed on the right. The distal femoral stem is not on the x-ray. Mild degenerative sclerosis is present at the pubic symphysis joint. SI joints are symmetrical. There is moderate axial joint space narrowing of the left hip. There are small marginal osteophytes. No fractures identified. XR/XR hip LT w PEL1V IMPRESSION: There is moderate axial joint space narrowing of the left with small marginal osteophytes. Right total hip replacement. Electronically signed by: Pedro Schaffer MD 02/26/2025 02:59 PM EDT
== END 2025-02-26 13:46 | disposition home or self-care (01) ==
LOC: HO.HMGCX 13:45
PROVIDERS: PCP Physician Assistant; Visit Provider Physician Assistant Medical
DX: M25.552 Pain in left hip (principal); Z96.641 Presence of right artificial hip joint
CPT/HCPCS: 73502; 99212

== ENCOUNTER 2025-02-26 13:45 | Outpatient (AMB) | payer OTHER, SELFPAY ==
--- OUTSIDE RECORDS SUMMARY | 2023-12-13 06:40 | XMS_ITS ---
Author Organization [facility] Address [address] [place] [address] Care Team Providers Care Ax Survey Worker Name Role Phone Mendoza Norton Primary Care Provider Unavailab Gaurav Lo Jr REASON FOR VISIT Patient presents today for gastritis Encounters Encounter Location Date Provider Diagnosis [facility] 10 [facility] [address] [place] [address] 12/13/2023 Gaurav Nunez Jr Plan Of Treatment Next Appt Details Provider Name:Gaurav connor Jr, 01/19/2026 10:40:00 AM, [address] [facility], [address], [place], [address], Progress Notes * MELINA COOKDOB:1965 (59 yo F)Acc No.[id number]:12/13/2023 Progress Notes Patient: MELINA VALDOVINOS Provider: Sharee Nunez MD :1965 A ge:58 Y S ex:Female Date:12/13/2023 Address:[address] [place] [address] Pcp:Mendoza Norton Subjective: * Chief Complaints: * [...] 12/13/2023 Generated for Lupe flood/Renan/Ron on: 1 07:36 PM EDT
--- OUTSIDE RECORDS SUMMARY | 2024-01-19 07:00 | XMS_ITS ---
Author Organization [facility] Address [address] [place] [address] [place] [address] Care Team Providers Care Butadiene Converter Helper Name Role Phone Mendoza Norton Primary Care Provider Unavailab Gaurav Lo Jr REASON FOR VISIT epigastric pain Encounters Encounter Location Date Provider Diagnosis [facility] Outpatient [address] [place] [phone] 01/19/2024 Gaurav Nunez Jr Epigastric pain R10.13 Assessments Encounter Date Diagnosis (ICD Code) Assessment Notes Treatment Notes Treatment Clinical Notes Section Notes 01/19/2024 Epigastric pain (ICD-10 - R10.13) Plan Of Treatment Next Appt Details Provider Name:Gaurav connor Jr, 01/19/2026 10:40:00 AM, 10 [facility], Suite [facility], [place], [address], Progress Notes * MELINA COOKDOB:1965 (59 yo F)Acc No.[id number]:01/19/2024 EGD/MAC Patient: MELINA VALDOVINOS Provider: Sharee Nunez MD :1965 A ge:58 Y S ex:Female Date:01/19/2024 Address:[address] [place] [address] Pcp:Mendoza Norton Subjective: * Chief Complaints: * [...] 0 01/19/2024 Generated for Lupe flood/Renan/Evitaitting on: 07:36 PM EDT
[2025-02-26 14:00] VITALS: BP 98/64; PULSE 81; TEMP 36.6; O2SAT 96; BMI 24.5
--- NOTE | 2025-02-26 14:00 | MHC.OFFWIV ---
Intake Vital Signs 02/26/25 14:00 Height 4 ft 10 in Weight 117 lb 4 oz BMI 24.5 BP 98/64 Blood Pressure Location Lt brachial Position Sitting Pulse 81 Pulse Source Pulse Oximeter Temp 97.9 F Temp Source Oral Pulse Oximetry (%) 96 Oxygen Delivery Method Room Air Intake Visit Reasons: EP - Left Hip Discomfort Intake Note: Patient presents with left hip pain, ongoing for a while but worsened about a week ago. Patient Tobacco Use Status: Former Tobacco user Allergies celecoxib (From Celebrex) Allergy (Intermediate, Verified 02/26/25 14:05) Hives Iodinated Contrast Media (Contrast Dye) Allergy (Verified 02/26/25 14:05) Hives Do you need a note to return to daycare/school/sports/work: No HPI HPI Comments History of Present Illness Details History of Present Illness - The patient is a 59-year-old female presenting with left hip pain. - The patient has a history of osteoarthritis and underwent a right hip replacement on the right side. - The current issue began the week before with a sudden onset of pain after stepping awkwardly while packing for a camping trip. - The pain has progressively worsened with movement, though no popping sensation is noted. - The patient denies numbness, tingling, or pain in the abdomen or back. - The patient has not been taking regular pain medication but used Tylenol for pain relief the previous night. - She has pain with movement, walking and standing on the left. - She has no falls. - She denies chest pain, SOB, groin pain, or saddle anesthesia. Physical Exam General: Cooperative, healthy appearing, comfortable, no acute distress and well developed Orientation: Patient oriented x3 Respiratory: Normal respiratory effort and able to speak in complete sentences. Clear to auscultation bilaterally. No w/r/r noted. Cardiovascular: Regular rate and rhythm. Normal S1 and S2. No m/r/g noted. GI: No pain in the belly Skin: No rashes or lesions noted Neuro: Sensation intact. Extremities: Pain with passive ROM of the left hip. No click noted. Pain with adduction and abduction of the left hip. No TTP of the lateral left hip, pelvic brim, greater trochanter, ASIS, PSIS, or ischial tuberosity. FROM of the left knee and ankle. Ambulates with steady gait. Strength is 5/5 on the LE. Patient was informed and verbally consented to the use of an ambient scribe for clinic note documentation during this visit. [facility] Medical History (Updated 01/18/25 @ 13:28 by Fanny Ceballos PA-C) Cerebral aneurysm Exophoria Periodic limb movement disorder Migraine without aura RLS (restless legs syndrome) Hypotension Arthritis Refusal of blood transfusions as patient is Sabianism Osteoarthritis of right hip Hx of migraine headaches Asthma MDD (major depressive disorder), recurrent episode, moderate Surgical History Status post laparoscopic cholecystectomy Status post total replacement of right hip H/O colonoscopy History of removal of cyst History of eye surgery History of section Family History Father Myocardial infarction Diabetes Hypertension CVD (cardiovascular disease) Mother Hypertension Sister Hypertension Maternal Grandmother Medical history unknown Maternal Grandfather Glaucoma Paternal Grandmother Alzheimers disease Paternal Grandfather Diabetes Son Down syndrome Autism Myelofibrosis Family/Other Breast cancer Social History Household Members: Significant Other and Family Housing: House Are you a primary career development engineer to a significant other at home: No Do you presently have visiting nurse or other home services: No Alcohol intake: current Alcohol intake frequency: holidays/special occasions only Alcohol type: beer and wine Patient Tobacco Use Status: Former Tobacco user Tobacco use type: Cigarette e-Cigarette/Vaping Use: Never Used Second Hand Smoke Exposure: No Advance Directives Date on File: 11/02/21 service: No Current occupational status: unemployed 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 Sexual orientation: Straight/Heterosexual Gender identity: Female Cognitive needs: No Hearing needs: No Vision needs: Yes (reading glasses) Review of Systems Const All systems reviewed & are unremarkable except as noted in HPI and below Physical Exam Vital Signs: Last Vital Signs Temp 97.9 F 02/26/25 14:00 Pulse 81 02/26/25 14:00 BP 98/64 02/26/25 14:00 Pulse Ox 96 02/26/25 14:00 Oxygen Delivery Method Room Air 02/26/25 14:00 BMI result Body Mass Index 24.5 Results Reviewed Results Reviewed: will review the xray in the office Assessment & Plan Assessment & Plan (1) Left hip pain: Code(s): M25.552 - Pain in left hip Plan Most likely arthritis vs strain vs fracture vs tendonitis plan - An x-ray of the pelvis and left hip is planned to assess for any fractures or dislocations. - rest and heat to the area. - Referral to orthopedics for further evaluation and management is arranged, with an attempt to expedite the appointment. - The patient is advised to take anti-inflammatory and muscle relaxers for pain management. - follow up with PCP Orders: Orders XR hip LT w PEL1V Today M25.552 - Pain in left hip Referrals Orthopedics Referral M25.552 - Pain in left hip Medications: New cyclobenzaprine 5 mg PO Q8H PRN 20 tabs 0RF Muscle Spasm naproxen 500 mg PO Q12H PRN 20 tabs 0RF pain 7 days Coding Level of Care Code Est Pt Level 4 (80570) Diagnoses Left hip pain M25.552
--- OUTSIDE RECORDS SUMMARY | 2025-02-26 19:36 | XMS_ITS | Clinical Summary ---
Author Organization [facility] Address [address] [place] [address] Phone Care Team Providers Care Edge Beader Name Role Phone Mendoza Norton Primary Care [...] 08/26/2020 Adult Td,Tdap Booster 01/13/2030 01/14/2020, 010 RSV VACCINE (1 - 1-dose 75+ series) 2042 HEPATITIS A VACCINES Aged Out No long [...] ACO ACO ACO ACO ACO Care Teams Edge Beader Relationship Specialty Start Date End Date Mendoza Norton PA [address] [place] [address] PCP - General 03/20/19 Additional Source Comments The information contained in this document represents components of the legal health record. It is not the complete legal health record.[facility]
--- OUTSIDE RECORDS SUMMARY | 2025-02-26 19:36 | XMS_ITS | Encounter Summary ---
Author Organization [facility] Address [address] [place] [address] Phone Care Team Providers Care Facing Grinder Name Role Phone Mendoza Norton Primary Care Provider + Reason for Referral * Physical Therapy (Routine) - Closed Specialty Diagnoses / Procedures Referred By Jordana piper Referred To Contact Physical Therapy Diagnoses Encounter for rehabilitation Ferdinand Pruett MD Phone: tel: fax: mailto:[email or web address] [address] [place] [address] Phone: tel: Referral ID Status Reason Start Date Expiration Date Visits Re quested Visits Authorized [id number] Closed 03/20/2019 03/20/2020 9 9 Encounter Details Date Type Department Care Team (Latest Contact Info) Description 03/20/2019 Transcribe Orders [facility] Rehabilitation Services [address] [place] [address] Ferdinand Pruett MD 100 [facility] [address] [place] [address] [email or web address] Encounter for rehabilitation (Primary Dx) Social History [...] Orde r Schedule Ambulatory referral to [facility] Physical Therapy Outpatient Referral Routine Encounter for rehabilitation Ordered: 03/20/2019 documented as of this encounter Visit Diagnoses Diagnosis Encounter for rehabilitation- Primary documented in this encounter Care Teams Facing Grinder Relationship Specialty Start Date End Date Mendoza Norton PA [address] [place] [address] PCP - General 03/20/19 documented as of this encounter Additional Source Comments The information contained in this document represents components of the legal health record. It is not the complete legal health record.[facility]
--- OUTSIDE RECORDS SUMMARY | 2025-02-26 19:36 | XMS_ITS | Patient Health Record ---
Author Organization [facility] Address [address] [place] [phone] Care Team Providers Care Toll Collector Name Role Phone Mendoza Norton Primary Care Provider UnavailGaurav Acosta Jr Unavailable Allergies Allergen (clinical drug ingredient) Drug/Non Drug Allergy documented on EMR Reaction Allergy Type Onset Date Status celecoxib CeleBREX Unknown Drug Allergy Active contrast dye (uncoded) Unknown Allergy Active Reason For Referral No Information Medications Medication SIG (Take, Route, Frequency, Duration) Notes Start Date End Date Status Vitamin D in winter Active Rizatriptan Benzoate 10 MG TAKE 1 TABLET BY MOUTH EVERY DAY FOR 30 DAYS Oral; Duration: 30 prn Active Super B Complex - Orally Ac tive Ibuprofen as needed Active Albuterol Sulfate HFA 108 (90 Base) MCG/ACT 1 puff as needed Inhalation every 4 hrs Not-Takin g Melatonin 3 MG 1 tablet at bedtime as needed with food Orally as needed Active Progesterone 100 MG Oral; Duration: 90 Days Active Testosterone 25 MG/2.5GM (1%) 2 packets to skin in the morning to shoulder, upper arms or abdomen Transdermal Once a day 01/15/2025 Active Ventolin HFA 108 (90 Base) MCG/ACT Inhalation; Duration: 25 Active Omeprazole 20 MG TAKE 1 CAPSULE BY MO UT EVERY DAY FOR 30 DAYS; Duration: 90 Active buPROPion HCl ER (XL) 300 MG Oral; Duration: 30 Active Immunizations Vaccine Route Administration Date [...] Problem Status W/U Status Risk Notes Problem Colon cancer screening (470338380) Colon cancer screening (Z12.11) Active confirmed Problem Epigastric pain (76061937) Epigastric pain (R10.13) Active confirmed Problem History of polyp of colon (situation) (998747196) Personal history of colonic polyps (Z86.010) Active confirmed Problem Gastroesophageal reflux disease (525692081) Gastroesophageal reflux disease (K21.9) Active confirmed 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-steroidal anti-inflammatory drug (102761764811559) Encounter for long-term (current) use of NSAIDs (Z79.1) Active confirmed Vital Signs Temperature 97.3 degrees Fahrenheit 01/15/2025 Blood pressure diastolic 01 mm Hg 01/15/2025 Height 58.5 in 01/15/2025 Blood pressure systolic 001 mm Hg 01/15/2025 Weight 117.8 lbs 01/15/2025 BMI 24.2 kg/m2 01/15/2025 Encounters Encounter Location Date Provider Diagnosis [facility] [address] [place] [phone] 01/15/2025 Gaurav Nunez Jr Gastroesophageal reflux disease K21.9 and Colon cancer screening Z12.11 Assessments Encounter Date Diagnosis (ICD Code) Assessment Notes Treatment Notes Treatment Clinical Notes Section Notes 01/15/2025 Colon cancer screening (ICD-10 - Z12.11) [...] Provider Name:Gaurav connor Jr, 01/19/2026 10:40:00 AM, [address] [place] [address], [address], [place], [address], Insurance Providers Payer Name Payer Address Payer Phone Subscriber Number Group Number Insured Name Patient Relationship to Insured Coverage Start Date Coverage End Date [facility] [address] [address] [place], [place] [id number] MELINA COOK Self - patient is the insured MEDICAID OF [facility] [address] [place] [address] [id number] MELINA COOK Self - patient is the insured Medical (General) History Medical History History ICD Code asthma migraine headaches seasonal allergies Colonoscopy 06/20/23, hyperplastic polyp, ten-year followup Surgical History Surgery Date(Month/Year) Cholecystectomy 04/28 Right hip replacement 11/26 Strabismus repair 1989 section
== END 2025-02-26 14:55 | disposition home or self-care (01) ==
PROVIDERS: PCP Physician Assistant; Visit Provider Physician Assistant Medical
DX: M25.552 Pain in left hip (principal)

== ENCOUNTER → 2025-02-26 14:49 | Outpatient (BNV) | payer OTHER, SELFPAY | PROVIDERS: PCP Physician Assistant; Visit Provider Radiology Diagnostic Radiology | DX: M16.12 Unilateral primary osteoarthritis, left hip (principal); Z96.641 Presence of right artificial hip joint | CPT/HCPCS: 73502 ==

== ENCOUNTER 2025-03-18 09:30 | Outpatient (REF) | payer OTHER, SELFPAY ==
--- OUTSIDE RECORDS SUMMARY | 2023-12-13 05:40 | XMS_ITS ---
Author Organization [facility] Address [address] [place] [address] Care Team Providers Care Management Services Technician Name Role Phone Mendoza Norton Primary Care Provider Unavailab Gaurav Lo Jr REASON FOR VISIT Patient presents today for gastritis Encounters Encounter Location Date Provider Diagnosis [facility] 10 [facility] [address] [place] [address] 12/13/2023 Gaurav Nunez Jr Plan Of Treatment Next Appt Details Provider Name:Gaurav connor Jr, 01/19/2026 10:40:00 AM, 10 [facility], [address], [place], [address], Progress Notes * MELINA COOKDOB:1965 (59 yo F)Acc No.[id number]:12/13/2023 Progress Notes Patient: MELINA VALDOVINOS Provider: Sharee Nunez MD :1965 A ge:58 Y S ex:Female Date:12/13/2023 Address:[address] [place] [address] Pcp:Mendoza Norton Subjective: * Chief Complaints: * 1 . Patient presents today for gastritis. * Medical History: Objective: * Vitals: Assessment: Plan: * Treatment: * * The named appointment provid er may or may not be the originator of this progress note, and it is not deemed complete until electronically signed by the appointment provider. Sign off status: Pending * Provider: Shaere Nunez MD Date: 0 12/13/2023 Generated for Lupe flood/Renan/Ron on: 1 05/18/2024 10:31 AM EST
--- OUTSIDE RECORDS SUMMARY | 2024-01-19 06:00 | XMS_ITS ---
Author Organization [facility] Address 10 [facility] [address] [place] [address] Care Team Providers Care Highway Technician Name Role Phone Mendoza Norton Primary Care Provider Unavailab Gaurav Lo Jr [phone] REASON FOR VISIT epigastric pain Encounters Encounter Location Date Provider Diagnosis [facility] [place] [address] [place] [phone] 01/19/2024 Gaurav Nunez Jr Epigastric pain R10.13 Assessments Encounter Date Diagnosis (ICD Code) Assessment Notes Treatment Notes Treatment Clinical Notes Section Notes 01/19/2024 Epigastric pain (ICD-10 - R10.13) Plan Of Treatment Next Appt Details Provider Name:Gaurav connor Jr, 01/19/2026 10:40:00 AM, 10 [facility], Suite [facility], [place], [address], Progress Notes * MELINA COOKDOB:1965 (59 yo F)Acc No.[id number]:01/19/2024 EGD/MAC Patient: MELINA VALDOVINOS Provider: Sharee Nunez MD :1965 A ge:58 Y S ex:Female Date:01/19/2024 Address:[address] [place] [address] Pcp:Mendoza Norton Subjective: * Chief Complaints: * [...] 01/19/2024 Generated for Lupe flood/Renan/Evitaitting on: 1 05/18/2024 10:31 AM EST
[2025-03-18 10:02] LABS: Hematocrit 38.5 % (37.0-47.0); Hemoglobin 12.4 g/dl (12.0-16.0); Mean Corpuscular HGB Conc 32.2 g/dl (31.0-35.0); Mean Corpuscular Hemoglobin 28.6 pg (27.0-33.0); Mean Corpuscular Volume 88.9 fL (80.0-98.0); NRBC Abs Auto 0.000 X10*3/uL (0.0-0.012); NRBC Pct Auto 0.0 /100WBC (0.0-0.2); Platelet Count 283 X10*3/uL (160-400); Red Blood Count 4.33 X10*6/uL (4.20-5.50); White Blood Count 7.6 X10*3/uL (4.8-10.8)
--- OUTSIDE RECORDS SUMMARY | 2025-03-18 10:31 | XMS_ITS | Clinical Summary ---
Author Organization [facility] Address [address] [place] [address] Phone Care Team Providers Care Nuclear Plant Technical Advisor Name Role Phone Mendoza Norton Primary Care [...] ACO ACO ACO ACO ACO Care Teams Nuclear Plant Technical Advisor Relationship Specialty Start Date End Date Mendoza Norton PA [address] [place] [address] PCP - General 03/20/19 Additional Source Comments The information contained in this document represents components of the legal health record. It is not the complete legal health record.[facility]
--- OUTSIDE RECORDS SUMMARY | 2025-03-18 10:31 | XMS_ITS | Patient Health Record ---
Author Organization [facility] Address [address] [place] [phone] Care Team Providers Care Flower Cheniller Name Role Phone Mendoza Norton Primary Care [...] Orally Ac tive Ibuprofen as needed Active Omeprazole 20 MG TAKE 1 CAPSULE BY MO [facility] EVERY DAY FOR 30 DAYS; Duration: 90 Active Albuterol Sulfate HFA 108 (90 Base) [...] (90 Base) MCG/ACT Inhalation; Duration: 25 Active buPROPion HCl ER (XL) 300 MG [...] Status Risk Notes Problem Colon cancer screening (620500755) Colon cancer screening (Z12.11) Active confirmed Problem Epigastric pain (33686900) Epigastric pain (R10.13) Active confirmed Problem History of polyp of colon (situation) (168802567) Personal history of colonic polyps (Z86.010) Active confirmed Problem Gastroesophageal reflux disease (442397045) Gastroesophageal reflux disease (K21.9) Active confirmed 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 anti-inflammatory drug (701034604573798) Encounter for long-term (current) use of NSAIDs (Z79.1) Active confirmed Vital Signs Temperature 97.3 degrees Fahrenheit 01/15/2025 Blood pressure diastolic 01 mm Hg 01/15/2025 Height 58.5 in 01/15/2025 Blood pressure systolic 001 mm Hg 01/15/2025 Weight 117.8 lbs 01/15/2025 BMI 24.2 kg/m2 01/15/2025 Encounters Encounter Location Date Provider Diagnosis [facility] [address] [place] [phone] 01/15/2025 Gaurav Nunez Jr Gastroesophageal reflux disease [...] Provider Name:Gaurav connor Jr, 01/19/2026 10:40:00 AM, [address] [place] [address], [address], [place], [address], Insurance Providers Payer Name Payer Address Payer Phone Subscriber Number Group Number Insured Name Patient Relationship to Insured Coverage Start Date Coverage End Date [facility] [address] [address] [place], [place] [id number] MELINA COOK Self - patient is the insured MEDICAID OF [facility] [address] [place] [address] [id number] MELINA COOK Self - patient is the insured Medical (General) History Medical History History ICD Code asthma migraine headaches seasonal allergies Colonoscopy 06/20/23, hyperplastic polyp, ten-year followup Surgical History Surgery Date(Month/Year) Cholecystectomy 04/28 Right hip replacement 11/26 Strabismus repair 1989 section
--- OUTSIDE RECORDS SUMMARY | 2025-03-18 10:31 | XMS_ITS | Encounter Summary ---
Author Organization [facility] Address [address] [place] [address] Phone Care Team Providers Care Invasive Cardiovascular Technologist Name Role Phone Mendoza Norton Primary Care Provider + Reason for Referral * Physical Therapy (Routine) - Closed Specialty Diagnoses / Procedures Referred By Jordana piper Referred To Contact Physical Therapy Diagnoses Encounter for rehabilitation Ferdinand Pruett MD Phone: tel: fax: mailto:[email or web address] [address] [place] [address] Phone: tel: Referral ID Status Reason Start Date Expiration Date Visits Re quested Visits Authorized [id number] Closed 03/20/2019 03/20/2020 9 9 Encounter Details Date Type Department Care Team (Latest Contact Info) Description 03/20/2019 Transcribe Orders [facility] Rehabilitation Services [address] [place] [address] Ferdinand Pruett MD 100 [facility] [address] [place] [address] [email or web address] Encounter for rehabilitation (Primary Dx) Social History [...] Diagnoses Orde r Schedule Ambulatory referral to [facility] Physical Therapy Outpatient Referral Routine Encounter for rehabilitation Ordered: 03/20/2019 documented as of this encounter Visit Diagnoses Diagnosis Encounter for rehabilitation- Primary documented in this encounter Care Teams Invasive Cardiovascular Technologist Relationship Specialty Start Date End Date Mendoza Norton PA [address] [place] [address] PCP - General 03/20/19 documented as of this encounter Additional Source Comments The information contained in this document represents components of the legal health record. It is not the complete legal health record.[facility]
[2025-03-18 10:54] LABS: Alanine Aminotransferase 11 U/L (0-31); Albumin Level 4.4 g/dL (3.5-5.0); Alkaline Phosphatase 77 U/L (39-117); Anion Gap 10 (12-20); Aspartate Amino Transferase 17 U/L (5-31); Blood Urea Nitrogen 9 mg/dL (9-16); Calcium 9.5 mg/dL (8.4-10.2); Carbon Dioxide 26 mmol/L (22-29); Chloride 108 mmol/L (96-108); Cholesterol 191 mg/dL (<200); Estimated Glomerular Filt Rate > 60; HDL Cholesterol 47 mg/dL (>40); Potassium 4.0 mmol/L (3.3-5.1); Sodium 140 mmol/L (135-145); Total Protein 6.7 g/dL (6.5-8.0); Triglycerides 84 mg/dL (<150)
[2025-03-21 09:34] LABS: TS Negative Control Passed; TS Panel A 0; TS Panel B 0; TS Positive Control Passed; TSpotTB Negative (Negative)
== END 2025-03-18 09:31 | disposition home or self-care (01) ==
LOC: HO.LAB 09:30
PROVIDERS: PCP Physician Assistant; Visit Provider Physician Assistant
DX: Z11.1 Encounter for screening for respiratory tuberculosis (principal); E55.9 Vitamin D deficiency, unspecified; K29.70 Gastritis, unspecified, without bleeding; E78.9 Disorder of lipoprotein metabolism, unspecified; R23.2 Flushing
CPT/HCPCS: 36415; 80053; 80061; 82306; 82672; 82679; 84144; 85027; 86481

== ENCOUNTER 2025-03-19 09:00 | Outpatient (AMB) | payer OTHER, SELFPAY ==
--- OUTSIDE RECORDS SUMMARY | 2023-12-13 05:40 | XMS_ITS ---
Author Organization [facility] Address [address] [place] [address] Care Team Providers Care Payroll Assistant Name Role Phone Mendoza Norton Primary Care Provider Unavailab Gaurav Lo Jr [phone] REASON FOR VISIT Patient presents today for gastritis Encounters Encounter Location Date Provider Diagnosis [facility] [address] [facility] [address] [place] [address] 12/13/2023 Gaurav Nunez Jr Plan Of Treatment Next Appt Details Provider Name:Gaurav connor Jr, 01/19/2026 10:40:00 AM, [address] [facility], [address], [place], [address], Progress Notes * MELINA COOKDOB:1965 (59 yo F)Acc No.[id number]:12/13/2023 Progress Notes Patient: MELINA VALDOVINOS Provider: Sharee Nunez MD :1965 A ge:58 Y S ex:Female Date:12/13/2023 Address:[address] [place] [address] Pcp:Mendoza Norton Subjective: * Chief Complaints: * 1 . Patient presents today for gastritis. * Medical History: Objective: * Vitals: Assessment: Plan: * Treatment: * * The named appointment provid er may or may not be the originator of this progress note, and it is not deemed complete until electronically signed by the appointment provider. Sign off status: Pending * Provider: Sharee Nunez MD Date: 0 12/13/2023 Generated for Lupe flood/Renan/Ron on: 1 05/19/2024 09:36 AM EST
--- OUTSIDE RECORDS SUMMARY | 2024-01-19 06:00 | XMS_ITS ---
Author Organization [facility] Address [address] [place] [address] [place] [address] Care Team Providers Care Drier Tender Naphthalene Name Role Phone Mendoza Norton Primary Care Provider Unavailab Gaurav Lo Jr REASON FOR VISIT epigastric pain Encounters Encounter Location Date Provider Diagnosis [facility] Outpatient [address] [place] [phone] 01/19/2024 Gaurav Nunez Jr Epigastric pain R10.13 Assessments Encounter Date Diagnosis (ICD Code) Assessment Notes Treatment Notes Treatment Clinical Notes Section Notes 01/19/2024 Epigastric pain (ICD-10 - R10.13) Plan Of Treatment Next Appt Details Provider Name:Gaurav connor Jr, 01/19/2026 10:40:00 AM, 10 [facility], Suite [facility], [place], [address], Progress Notes * MELINA COOKDOB:1965 (59 yo F)Acc No.[id number]:01/19/2024 EGD/MAC Patient: MELINA VALDOVINOS Provider: Sharee Nunez MD :1965 A ge:58 Y S ex:Female Date:01/19/2024 Address:[address] [place] [address] Pcp:Mendoza Norton Subjective: * Chief Complaints: * [...] 01/19/2024 Generated for Lupe flood/Renan/Evitaitting on: 1 05/19/2024 09:35 AM EST
[2025-03-19 09:02] VITALS: BP 98/58; PULSE 87; TEMP 36.2; O2SAT 98; BMI 24.1
--- NOTE | 2025-03-19 09:02 | MHC.PC.OV ---
Vital Signs 03/19/25 09:02 Height 4 ft 10 in Weight 115 lb 6 oz BMI 24.1 BP 98/58 L Blood Pressure Location Lt brachial Position Sitting Pulse 87 Pulse Source Pulse Oximeter Temp 97.1 F Temp Source Temporal Artery Scan Pulse Oximetry (%) 98 Oxygen Delivery Method Room Air Intake Visit Reasons: f/u Migraines Allergies celecoxib (From Celebrex) Allergy (Intermediate, Verified 03/19/25 09:23) Hives Iodinated Contrast Media (Contrast Dye) Allergy (Verified 03/19/25 09:23) Hives Medication List - Last Reconciled 03/19/25 by Mendoza Norton PA-C albuterol sulfate 90 mcg/actuation (Ventolin HFA) 2 puffs PO Q6H PRN aripiprazole (Abilify) 2 mg PO DAILY 30 days bupropion HCl XL 300 mg PO DAILY 30 days cholecalciferol (vitamin D3) 50 mcg PO DAILY cyclobenzaprine 5 mg PO Q8H PRN diphenhydramine HCl (Benadryl Allergy) 50 mg orally 1 hour before appointment; 1 day estradiol transdermal fluticasone propion-salmeterol 45-21 mcg/actuation (Advair HFA) 1 puff inhalation DAILY lorazepam 0.5 mg PO BID PRN 5 days naproxen 500 mg PO Q12H PRN 7 days ondansetron HCl 4 mg PO Q8H PRN 3 days progesterone micronized mg PO rizatriptan take 1 tab at onset of headache; if no relief may repeat 1 tab after at least 4 hrs; max = 2 tabs/24 hr PO 30 days Tobacco use date assessed: 03/19/25 Dental Screening Dental Screen Date: 03/19/25 Did you have a dental visit in the last 12 months?: Yes Did you have a dental problem in the last 6 months where you did not have access to dental care?: No Was dental information given to patient?: Patient has dentist HPI f/u Migraines HPI Details Patient is a 59 year-old female here today for a follow up visit. Patient has a past medical history significant for moderate persistent asthma, depression, anxiety chronic migraines. ? .. ? Migraines : Followed by ?Neurologist continues on rizatriptan and magnesium . ? She reports her migraine frequency has much decreased.? She continues follow-up with neurologist. .. MDD: Patient has been suffering more with depressive mood. Abilify 2 mg of recently been added to her med regime which has helped her depression a bit more. She reports she is able to get up in the morning without much depression. Patient has been set up with a mental health therapist .. Anxiety: Has been having heightened anxiety since her has been recently diagnosed with myelofibrosis. Has started lorazepam on a p.r.n. basis with good effect. She will be seeing a specialist that [facility] soon with her son. .. ?moderate persistent asthma:? reports her asthma has been fairly well controlled. She tried to stop her maintenance inhaler though asthma symptoms had returned. ? She rarely has to use her rescue inhaler.? PFSH Medical History Cerebral aneurysm Exophoria Periodic limb movement disorder Migraine without aura RLS (restless legs syndrome) Hypotension Arthritis Refusal of blood transfusions as patient is Judaism Osteoarthritis of right hip Hx of migraine headaches Asthma MDD (major depressive disorder), recurrent episode, moderate Surgical History Status post laparoscopic cholecystectomy Status post total replacement of right hip H/O colonoscopy History of removal of cyst History of eye surgery History of section Family History Father Myocardial infarction Diabetes Hypertension CVD (cardiovascular disease) Mother Hypertension Sister Hypertension Maternal Grandmother Medical history unknown Maternal Grandfather Glaucoma Paternal Grandmother Alzheimers disease Paternal Grandfather Diabetes Son Down syndrome Autism Myelofibrosis Family/Other Breast cancer Social History Household Members: Significant Other and Family Housing: House Are you a primary care program resident to a significant other at home: No Do you presently have visiting nurse or other home services: No Alcohol intake: current Alcohol intake frequency: holidays/special occasions only Alcohol type: beer and wine Patient Tobacco Use Status: Former Tobacco user Tobacco use type: Cigarette e-Cigarette/Vaping Use: Never Used Second Hand Smoke Exposure: No Advance Directives Date on File: 11/02/21 service: No Current occupational status: unemployed 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 1. Little interest or pleasure in doing things: nearly every day 2. Feeling down, depressed, or hopeless: nearly every day 3. Trouble falling or staying asleep, or sleeping too much: several days 4. Feeling tired or having little energy: nearly every day 5. Poor appetite or overeating: nearly every day 6. Feeling bad about yourself - or that you are a failure or have let yourself or your family down: not at all 7. Trouble concentrating on things, such as reading the newspaper or watching television: nearly every day 8. Moving or speaking so slowly that other people could have noticed. Or the opposite - being so fidgety or restless that you have been moving around a lot more than usual: not at all 9. Thoughts that you would be better off or of hurting yourself in some way: not at all Total score: 16 Depression Screening Interpretation: Positive Depression Screening Follow-up: Existing condition and In treatment Depression Screening Done: Yes 48816 - PHQ-9 Billing: Yes Source: Developed by Drs. Som Kee, Margy Garcia, Sebastian Rivera and colleagues, with an educational remigio from [employer]. Thrive Questionnaire Date Thrive assessed: 06/26/24 I am a: Patient What is your living situation today?: I have a steady place to live Within the past 12 months, did the food you bought not last and you didn't have the money to get more?: Never true Within the past 12 months, did you worry whether your food would run out before you got money to buy more?: Never true Do you have trouble paying for medicines?: No Do you have trouble getting transportation to medical appointments?: No Do you have trouble paying your heating and electricity bill?: No Do you have trouble taking care of your child, family member or friend?: No Do you have trouble with day-to-day activities such as bathing, preparing meals, shopping, managing finances, etc.?: I choose not to answer this question Are you currently unemployed and looking for a job?: No Are you interested in more education?: No Please select the resources that you would like help with: None Currently or been in a relationship where the following occur: No concerns reported THRIVE Score: 0 AUDIT C Alcohol Use Questionnaire (AUDIT-C) 1. How often do you have a drink containing alcohol?: Monthly or less 2. How many drinks containing alcohol do you have on a typical day when you are drinking?: 1 or 2 3. How often do you have six or more drinks on one occasion?: Never Total Score: 1 BRYAN-7 AMB Questionnaire BRYAN-7 Date BRYAN - 7 assessed: 03/19/25 Feeling nervous, anxious, or on edge: 3 = Nearly every day Not being able to stop or control worryin = Not at all Worrying too much about different things: 1 = Several days Trouble relaxin = More than half the days Being so restless that it is hard to sit still: 0 = Not at all Becoming easily annoyed or irritable: 3 = Nearly every day Feeling afraid as if something awful might happen: 0 = Not at all Total BRYAN-7 score (0-4 normal; 5-9 mild; 10-14 moderate; 15-21 severe): 9 Source: Developed by Drs. Som Kee, Margy Garcia, Sebastian Rivera and colleagues, with an educational remigio from [employer]. BRYAN-7 Assessment Billing BRYAN-7 Assessment Tool: BRYAN-7 Assessment 19449 Review of Systems Const Denies headache(s) Eyes Denies loss of vision ENT Denies vertigo, Denies dizziness, Denies headache(s) and Denies sore throat Card Denies chest pain, Denies leg edema and Denies lightheadedness Resp Denies cough, Denies hemoptysis and Denies wheezing GI Denies abdominal pain, Denies melena, Denies constipation, Denies diarrhea and Denies vomiting Denies urinary frequency, Denies dysuria and Denies urinary urgency Musc Denies arthralgias, Denies joint swelling, Denies numbness and Denies tingling Neuro Denies Abnormal speech present, Denies behavioral changes, Denies vertigo, Denies dizziness, Denies headache(s), Denies loss of vision, Denies memory loss, Denies numbness and Denies tingling Psych Denies anxiety, Denies behavioral changes, Denies depression, Denies memory loss and Denies panic attacks Deniz/Lymph Denies easy bleeding and Denies easy bruising Aller/Immun Denies wheezing Physical exam (Primary Care) Vital Signs: Last Vital Signs Temp 97.1 F 03/19/25 09:02 Pulse 87 03/19/25 09:02 BP 98/58 L 03/19/25 09:02 Pulse Ox 98 03/19/25 09:02 Oxygen Delivery Method Room Air 03/19/25 09:02 BMI result Body Mass Index 24.1 Tobacco/Smoking Status: Tobacco use Status Tobacco use date assessed 03/19/25 03/19/25 09:08 Patient Tobacco Use Status Former Tobacco user 03/19/25 09:08 Tobacco use type Cigarette 03/19/25 09:08 e-Cigarette/Vaping Use Never Used 03/19/25 09:08 PHQ-9: PHQ-9 Score PHQ-9: Total score 16 03/19/25 09:08 Depression Screening Interpretation: Positive Depression Screening Follow-up: Existing condition and In treatment Thrive Assessment: Date of Thrive Assessment Date Thrive assessed 06/26/24 03/19/25 09:08 Currently or been in a relationship where the following occur: No concerns reported Const General: healthy appearing, no acute distress, alert and awake Nutritional Appearance: well nourished Orientation/consciousness: oriented to person, oriented to place and oriented to time HENMT Ears: TM's normal bilaterally General nose exam: Normal nasal mucous membranes and turbinates present Eyes Conjunctivae: conjunctivae normal Sclerae: sclerae normal Pupils: Equal, round and reactive pupils present Neck Neck: Yes no lymphadenopathy and Yes no JVD Thyroid: Thyroid normal Carotids: no bruits Resp Effort & Inspection: normal respiratory effort and not tachypneic Auscultation: no crackles, no rales, no rhonchi and no wheezes Cardio Rate: regular rate Rhythm: regular rhythm Heart sounds: no murmurs and normal S1 and S2 GI Palpation (GI): Soft to palpation, nontender, no hepatomegaly and no splenomegaly Auscultation: normal bowel sounds Skin General skin exam: no rashes or lesions noted and dry skin Neuro General: oriented to person, oriented to place and oriented to time Cranial nerves: Yes Equal, round and reactive pupils present Speech: No Abnormal speech present Gait exam (Neuro): Normal gait present Motor exam (neuro): no tremor noted Extrem Right upper extremity: full ROM Left upper extremity: full ROM Right lower extremity: full ROM; no edema Left lower extremity: full ROM; no edema Psych Mental Status: mental status grossly normal Speech and movement: Normal speech and movement present Affect: normal affect Attitude: cooperative Thought process: Normal thought process present Coding Level of Care Code Est Pt Level 4 (50984) Diagnoses Mild intermittent asthma without complication J45.20 Asthma severity: mild Asthma persistence: intermittent Asthma complication type: uncomplicated MDD (major depressive disorder), recurrent episode, moderate F33.1 Intractable migraine without aura and without status migrainosus G43.019 Migraine type: without aura Status migrainosus presence: without status migrainosus Intractability: intractable Additional Codes BRYAN-7 Assessment Billing - BRYAN-7 Assessment Tool: BRYAN-7 Assessment 25571 ([id number]) PHQ-9 - 07750 - PHQ-9 Billing: Yes ([id number]) Assessment & Plan Assessment & Plan (1) Asthma: Code(s): J45.909 - Unspecified asthma, uncomplicated Category: Medical Qualifiers: Asthma severity: mild Asthma persistence: intermittent Asthma complication type: uncomplicated Qualified Code(s): J45.20 - Mild intermittent asthma, uncomplicated Plan: Patient reports her asthma has been fairly well controlled. , does have her maintenance inhaler Advair and albuterol inhaler (2) MDD (major depressive disorder), recurrent episode, moderate: Code(s): F33.1 - Major depressive disorder, recurrent, moderate Category: Medical Plan: Patient's PHQ-9 score positive for depression which has been existing condition for her.. Patient has been set up with a mental health therapist. Additional and Abilify has been started on top of for Wellbutrin which has helped her depressive mood. (3) Migraines: Code(s): G43.909 - Migraine, unspecified, not intractable, without status migrainosus Category: Medical Qualifiers: Migraine type: without aura Status migrainosus presence: without status migrainosus Intractability: intractable Qualified Code(s): G43.019 - Migraine without aura, intractable, without status migrainosus Plan: Patient reports her migraines has been pretty stable, did have increased migraine frequency over January though was likely triggered. She does use her triptan on as needed basis for migraine
--- OUTSIDE RECORDS SUMMARY | 2025-03-19 09:36 | XMS_ITS | Patient Health Record ---
Author Organization [facility] Address [address] [place] [phone] Care Team Providers Care Phone Engineer Name Role Phone Mendoza Norton Primary Care Provider UnavailGaurav Acosta Jr Unavailable [phone] Allergies Allergen (clinical drug ingredient) Drug/Non [...] 20 MG TAKE 1 CAPSULE BY [facility] EVERY DAY FOR 30 DAYS; Duration: 90 [...] Status Risk Notes Problem Colon cancer screening (614903788) Colon cancer screening (Z12.11) Active confirmed Problem Epigastric pain (76797245) Epigastric pain (R10.13) Active confirmed Problem History of polyp of colon (situation) (517353087) Personal history of colonic polyps (Z86.010) Active confirmed Problem Gastroesophageal reflux disease (868939745) Gastroesophageal reflux disease (K21.9) Active confirmed 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-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 anti-inflammatory drug (782450433096015) Encounter for long-term (current) use of NSAIDs (Z79.1) Active confirmed Vital Signs Temperature 97.3 degrees Fahrenheit 01/15/2025 Blood pressure diastolic 01 mm Hg 01/15/2025 Height 58.5 in 01/15/2025 Blood pressure systolic 001 mm Hg 01/15/2025 Weight 117.8 lbs 01/15/2025 BMI 24.2 kg/m2 01/15/2025 Encounters Encounter Location Date Provider Diagnosis [facility] [address] [place] [phone] 01/15/2025 Gaurav Nunez Jr Gastroesophageal reflux disease [...] Provider Name:Gaurav connor Jr, 01/19/2026 10:40:00 AM, [address] [place] [address], [address], [place], [address], Insurance Providers Payer Name Payer Address Payer Phone Subscriber Number Group Number Insured Name Patient Relationship to Insured Coverage Start Date Coverage End Date [facility] [address] [address] [place], [place] [id number] MELINA COOK Self - patient is the insured MEDICAID OF [facility] [address] [place] [address] [id number] MELINA COOK Self - patient is the insured Medical (General) History Medical History History ICD Code asthma migraine headaches seasonal allergies Colonoscopy 06/20/23, hyperplastic polyp, ten-year followup Surgical History Surgery Date(Month/Year) Cholecystectomy 04/28 Right hip replacement 11/26 Strabismus repair 1989 section
--- OUTSIDE RECORDS SUMMARY | 2025-03-19 09:36 | XMS_ITS | Encounter Summary ---
Author Organization [facility] Address [address] [place] [address] Phone Care Team Providers Care Call Center Director Name Role Phone Mendoza Norton Primary Care Provider + Reason for Referral * Physical Therapy (Routine) - Closed Specialty Diagnoses / Procedures Referred By Jordana piper Referred To Contact Physical Therapy Diagnoses Encounter for rehabilitation Ferdinand Pruett MD Phone: tel: fax: mailto:[email or web address] [facility] [address] [place] [address] Phone: tel: Referral ID Status Reason Start Date Expiration Date Visits Re quested Visits Authorized [id number] Closed 03/20/2019 03/20/2020 9 9 Encounter Details Date Type Department Care Team (Latest Contact Info) Description 03/20/2019 Transcribe Orders [facility] Rehabilitation Services [address] [place] [address] Ferdinand Pruett MD 100 [facility] [address] [place] [address] [email or web address] [email or web address] Encounter for rehabilitation (Primary Dx) Social History [...] Diagnoses Orde r Schedule Ambulatory referral to [facility] Physical Therapy Outpatient Referral Routine Encounter for rehabilitation Ordered: 03/20/2019 documented as of this encounter Visit Diagnoses Diagnosis Encounter for rehabilitation- Primary documented in this encounter Care Teams Call Center Director Relationship Specialty Start Date End Date Mendoza Norton PA [address] [place] [address] PCP - General 03/20/19 documented as of this encounter Additional Source Comments The information contained in this document represents components of the legal health record. It is not the complete legal health record.[facility]
--- OUTSIDE RECORDS SUMMARY | 2025-03-19 09:36 | XMS_ITS | Clinical Summary ---
Author Organization [facility] Address [address] [place] [address] Phone Care Team Providers Care Petroleum Engineering Professor Name Role Phone Mendoza Norton Primary Care [...] on patient's age to complete this topic IPV VACCINES Aged Out No longer eligi ble based on patient's age to complete this topic MENINGOCOCCAL VACCINES (ACWY) Aged Out No longer eligible based on patient's age to complete this topic MENINGOCOCCAL VACCINES (B) Aged Out N o longer eligible based on patient's age to complete this topic Medical Devices Not on file Insurance ACO ACO ACO ACO ACO ACO ACO ACO ALLIANCE ACO Care Teams Petroleum Engineering Professor Relationship Specialty Start Date End Date Mendoza Norton PA [facility] [place] [address] PCP - General 03/20/19 Additional Source Comments The information contained in this document represents components of the legal health record. It is not the complete legal health record.[facility]
== END 2025-03-19 09:40 | disposition home or self-care (01) ==
LOC: HO.HMCH 09:01
PROVIDERS: PCP Physician Assistant; Visit Provider Physician Assistant
DX: J45.20 Mild intermittent asthma, uncomplicated (principal); F33.1 Major depressive disorder, recurrent, moderate; G43.019 Migraine without aura, intractable, without status migrainosus

== ENCOUNTER → 2025-03-19 09:00 | Outpatient (BNVA) | payer OTHER, SELFPAY | PROVIDERS: PCP Physician Assistant; Visit Provider Physician Assistant | DX: J45.20 Mild intermittent asthma, uncomplicated (principal); F41.9 Anxiety disorder, unspecified; F33.1 Major depressive disorder, recurrent, moderate; G43.019 Migraine without aura, intractable, without status migrainosus | CPT/HCPCS: 96127; 99212 ==

== ENCOUNTER 2025-03-20 10:51 | Outpatient (REF) | payer OTHER, SELFPAY ==
--- OUTSIDE RECORDS SUMMARY | 2023-12-13 05:40 | XMS_ITS ---
Author Organization [facility] Address [address] [place] [address] Care Team Providers Care Skip Loader Name Role Phone Mendoza Norton Primary Care Provider Unavailab Gaurav Lo Jr [phone] REASON FOR VISIT Patient presents today for gastritis Encounters Encounter Location Date Provider Diagnosis [facility] 10 [facility] [address] [place] [address] 12/13/2023 Gaurav Nunez Jr Plan Of Treatment Next Appt Details Provider Name:Gaurav connor Jr, 01/19/2026 10:40:00 AM, 10 [facility], [address], [place], [address], Progress Notes * MELINA COOKDOB:1965 (59 yo F)Acc No.[id number]:12/13/2023 Progress Notes Patient: MELINA VALDOVINOS Provider: Sharee Nunez MD :1965 A ge:58 Y S ex:Female Date:12/13/2023 Address:[address] [place] [address] Pcp:Mendoza Norton Subjective: * Chief Complaints: * [...] 12/13/2023 Generated for Lupe flood/Renan/Ron on: 1 05/20/2024 01:29 PM EST
--- OUTSIDE RECORDS SUMMARY | 2024-01-19 06:00 | XMS_ITS ---
Author Organization [facility] Address [address] [place] [address] [place] [address] Care Team Providers Care Camp Maintenance Supervisor Name Role Phone Mendoza Norton Primary Care Provider Unavailab Gaurav Lo Jr REASON FOR VISIT epigastric pain Encounters Encounter Location Date Provider Diagnosis [facility] Outpatient [address] [place] [phone] 01/19/2024 Gaurav Nunez Jr Epigastric pain R10.13 Assessments Encounter Date Diagnosis (ICD Code) Assessment Notes Treatment Notes Treatment Clinical Notes Section Notes 01/19/2024 Epigastric pain (ICD-10 - R10.13) Plan Of Treatment Next Appt Details Provider Name:Gaurav connor Jr, 01/19/2026 10:40:00 AM, [address] [facility], Suite [facility], [place], [address], Progress Notes * MELINA COOKDOB:1965 (59 yo F)Acc No.[id number]:01/19/2024 EGD/MAC Patient: MELINA VALDOVINOS Provider: Sharee Nunez MD :1965 A ge:58 Y S ex:Female Date:01/19/2024 Address:[address] [place] [address] Pcp:Mendoza Norton Subjective: * Chief Complaints: * 1 . Epigastric pain. * Medical History: Objective: * Vitals: Assessment: * Assessment: 1. E pigastric pain - R10.13 (Primary) Plan: * Treatment: * Procedure Codes: 4 3239 UPPER GI ENDOSCOPY, BIOPSY * * The named appointment provid er may or may not be the originator of this progress note, and it is not deemed complete until electronically signed by the appointment provider. Sign off status: Pending * Provider: Sharee Nunez MD Date: 0 01/19/2024 Generated for Lupe flood/Renan/Evitaitting on: 05/20/2024 01:29 PM EST
[2025-03-20 11:34] LABS: Appearance Urine Turbid; Glucose Urine UA Negative (Negative); PH 6.0 (5.0-9.0); Specific Gravity - Urine 1.020 (1.005-1.025); UMIC TRIGGER UACC YES
[2025-03-20 11:38] LABS: UACC Culture Trigger YES
--- OUTSIDE RECORDS SUMMARY | 2025-03-20 13:29 | XMS_ITS | Patient Health Record ---
Author Organization [facility] Address [address] [place] [phone] Care Team Providers Care Equipment Maintenance Supervisor Name Role Phone Mendoza Norton Primary Care Provider UnavailGaurav Acosta Jr Unavailable [phone] Allergies Allergen (clinical drug ingredient) Drug/Non [...] 20 MG TAKE 1 CAPSULE BY [facility] EVERY DAY FOR 30 DAYS; [...] Status Risk Notes Problem Colon cancer screening (336770825) Colon cancer screening (Z12.11) Active confirmed Problem Epigastric pain (74669370) Epigastric pain (R10.13) Active confirmed Problem History of polyp of colon (situation) (926447193) Personal history of colonic polyps (Z86.010) Active confirmed Problem Gastroesophageal reflux disease (998496624) Gastroesophageal reflux disease (K21.9) Active confirmed 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-inflammatory drug (477988875262428) Encounter for long-term (current) use of NSAIDs (Z79.1) Active confirmed Vital Signs Temperature 97.3 degrees Fahrenheit 01/15/2025 Blood pressure diastolic 01 mm Hg 01/15/2025 Height 58.5 in 01/15/2025 Blood pressure systolic 001 mm Hg 01/15/2025 Weight 117.8 lbs 01/15/2025 BMI 24.2 kg/m2 01/15/2025 Encounters Encounter Location Date Provider Diagnosis [facility] [address] [place] [phone] 01/15/2025 Gaurav Nunez Jr Gastroesophageal reflux disease [...] Name:Gaurav connor Jr, 01/19/2026 10:40:00 AM, [address] [place] [address], [address], [place], [address], Insurance Providers Payer Name Payer Address Payer Phone Subscriber Number Group Number Insured Name Patient Relationship to Insured Coverage Start Date Coverage End Date [facility] [address] [address] [place], [place] [id number] MELINA COOK Self - patient is the insured MEDICAID OF [facility] [address] [place] [address] [id number] MELINA COOK Self - patient is the insured Medical (General) History Medical History History ICD Code asthma migraine headaches seasonal allergies Colonoscopy 06/20/23, hyperplastic polyp, ten-year followup Surgical History Surgery Date(Month/Year) Cholecystectomy 04/28 Right hip replacement 11/26 Strabismus repair 1989 section
--- OUTSIDE RECORDS SUMMARY | 2025-03-20 13:30 | XMS_ITS | Encounter Summary ---
Author Organization [facility] Address [address] [place] [address] Phone Care Team Providers Care Diversified Crops Ii Farmworker Name Role Phone Mendoza Norton Primary Care Provider + Reason for Referral * Physical Therapy (Routine) - Closed Specialty Diagnoses / Procedures Referred By Jordana piper Referred To Contact Physical Therapy Diagnoses Encounter for rehabilitation Ferdinand Pruett MD Phone: tel: fax: mailto:[email or web address] [facility] [address] [place] [address] Phone: tel: Referral ID Status Reason Start Date Expiration Date Visits Re quested Visits Authorized [id number] Closed 03/20/2019 03/20/2020 9 9 Encounter Details Date Type Department Care Team (Latest Contact Info) Description 03/20/2019 Transcribe Orders [facility] [address] [place] [address] Ferdinand Pruett MD 100 [facility] [address] [place] [address] [email or web address] Encounter for rehabilitation (Primary Dx) Social History [...] Diagnoses Orde r Schedule Ambulatory referral to [facility] Physical Therapy Outpatient Referral Routine Encounter for rehabilitation Ordered: 03/20/2019 documented as of this encounter Visit Diagnoses Diagnosis Encounter for rehabilitation- Primary documented in this encounter Care Teams Diversified Crops Ii Farmworker Relationship Specialty Start Date End Date Mendoza Norton PA [address] [place] [address] PCP - General 03/20/19 documented as of this encounter Additional Source Comments The information contained in this document represents components of the legal health record. It is not the complete legal health record.[facility]
--- OUTSIDE RECORDS SUMMARY | 2025-03-20 13:30 | XMS_ITS | Clinical Summary ---
Author Organization [facility] Address [address] [place] [address] Phone Care Team Providers Care Industrial Paramedic Name Role Phone Mendoza Norton Primary Care [...] ACO ACO ACO ALLIANCE ACO Care Teams Industrial Paramedic Relationship Specialty Start Date End Date Mendoza Norton PA [facility] [place] [address] PCP - General 03/20/19 Additional Source Comments The information contained in this document represents components of the legal health record. It is not the complete legal health record.[facility]
== END 2025-03-20 10:52 | disposition home or self-care (01) ==
LOC: HO.LAB 10:51
PROVIDERS: PCP Physician Assistant; Visit Provider Physician Assistant
DX: R30.0 Dysuria (principal)
CPT/HCPCS: 81001; 87086; 87088; 87186

== ENCOUNTER 2025-04-02 11:47 | Outpatient (AMB) | payer OTHER, SELFPAY ==
--- NOTE | 2025-04-02 11:52 | MHC.OFFVIS ---
Intake Visit Reasons: after CTA Accompanied by: Son Allergies celecoxib (From Celebrex) Allergy (Intermediate, Verified 04/02/25 12:03) Hives Iodinated Contrast Media (Contrast Dye) Allergy (Verified 04/02/25 12:03) Hives Medication List - Last Reconciled 04/02/25 by Kia Donohue, LATHA albuterol sulfate 90 mcg/actuation (Ventolin HFA) 2 puffs PO Q6H PRN aripiprazole (Abilify) 2 mg PO DAILY 30 days bupropion HCl XL 300 mg PO DAILY 30 days cholecalciferol (vitamin D3) 50 mcg PO DAILY cyclobenzaprine 5 mg PO Q8H PRN diphenhydramine HCl (Benadryl Allergy) 50 mg orally 1 hour before appointment; 1 day estradiol transdermal fluticasone propion-salmeterol 45-21 mcg/actuation (Advair HFA) 1 puff inhalation DAILY lorazepam 0.5 mg PO BID PRN 5 days naproxen 500 mg PO Q12H PRN 7 days nitrofurantoin monohyd/m-cryst 100 mg (Macrobid) 100 mg PO Q12H 5 days ondansetron HCl 4 mg PO Q8H PRN 3 days progesterone micronized mg PO rizatriptan take 1 tab at onset of headache; if no relief may repeat 1 tab after at least 4 hrs; max = 2 tabs/24 hr PO 30 days HPI Comments Details: 59-year-old woman with family h/o cerebral aneurysm and long h/o migraine type headaches. She was doing okay. She was here for CTA results. Migraines were okay. She was getting migraine about 1-2x/month. Rizatriptan as needed helped. Sleep was okay. [facility] Medical History Cerebral aneurysm Exophoria Periodic limb movement disorder Migraine without aura RLS (restless legs syndrome) Hypotension Arthritis Refusal of blood transfusions as patient is [employer] Osteoarthritis of right hip Hx of migraine headaches Asthma MDD (major depressive disorder), recurrent episode, moderate Surgical History Status post laparoscopic cholecystectomy Status post total replacement of right hip H/O colonoscopy History of removal of cyst History of eye surgery History of section Family History Father Myocardial infarction Diabetes Hypertension CVD (cardiovascular disease) Mother Hypertension Sister Hypertension Maternal Grandmother Medical history unknown Maternal Grandfather Glaucoma Paternal Grandmother Alzheimers disease Paternal Grandfather Diabetes Son Down syndrome Autism Myelofibrosis Family/Other Breast cancer Social History Household Members: Significant Other and Family Housing: House Are you a primary hospice spiritual care coordinator to a significant other at home: No Do you presently have visiting nurse or other home services: No Alcohol intake: current Alcohol intake frequency: holidays/special occasions only Alcohol type: beer and wine Patient Tobacco Use Status: Former Tobacco user Tobacco use type: Cigarette e-Cigarette/Vaping Use: Never Used Second Hand Smoke Exposure: No Advance Directives Date on File: 11/02/21 service: No Current occupational status: unemployed 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 Sexual orientation: Straight/Heterosexual Gender identity: Female Cognitive needs: No Hearing needs: No Vision needs: Yes (reading glasses) Review of Systems Const Denies chills, Denies daytime sleepiness, Denies difficulty sleeping, Denies fatigue, Denies fever(s), Denies frequent falls, Reports headache(s), Denies increased appetite, Denies poor appetite, Denies snoring, Denies weakness, Denies weight gain and Denies weight loss Eyes Denies loss of vision ENT Denies vertigo, Denies dizziness and Reports headache(s) Card Denies chest pain at rest, Denies chest pain with activity, Denies syncope, Denies leg edema and Denies palpitations Resp Denies snoring GI Denies constipation, Denies heartburn, Denies diarrhea and Denies nausea Denies urinary frequency, Denies urinary incontinence and Denies urinary urgency Musc Denies abnormal gait, Denies numbness and Denies tingling Skin/Breast Denies dry skin and Denies rash Neuro Denies abnormal gait, Denies vertigo, Denies dizziness, Denies syncope, Denies frequent falls, Reports headache(s), Denies lack of coordination, Denies loss of vision, Denies memory loss, Denies numbness, Denies restless legs, Denies seizure-like activity, Denies tingling, Denies paresthesias, Denies tremor(s) and Denies weakness Psych Denies anxiety, Denies depression, Denies auditory hallucinations, Denies memory loss, Denies visual hallucinations and Denies suicidal ideation Endo Denies fatigue and Denies palpitations Physical Exam Const Other: General Appearance:? normal, in no acute distress. Skin:? no rashes, no significant birthmarks. Heart:? S1, S2 normal, no murmurs. Lungs:? clear anteriorly and posteriorly. Extremities:? no edema. Psych:? alert, oriented, cognitive function intact, cooperative with exam. Neuro Other: Mental Status:?Normal attention, orientation, memory and affect.? Cranial Nerves:?Pupils are equal, round and reactive to light. External occular muscles are intact. Visual cutler are full. Face is symmetrical. Facial sensations are normal. Tongue is midline. Palate elevates symmetrically. Shoulder shrugging is normal. Hearing to bedside conversation is normal. Sensory Exam:?....? Coordination:?No ataxia,?no titubation.? Gait Exam: With cane. Cerebellar Signs:?Ysmycz-hy-lhiu is okay. Extrapyramidal System:?No tremor, rigidity with normal facial expressions.? Pronator Drift:?Not present.? Involuntary Movements:?No tremors seen.? Speech:?Normal.? Results Reviewed Results Reviewed: [address] [address] [address] Scan Report Signed with Addenda Patient: Evy Keenan MR#: [id number] : 1965 Acct:[id number] Age/Sex: 59 / F ADM Date: 01/15/25 Loc: HO.CT Attending Dr: Kia Donohue CNP Ordering Physician: Kia Donohue CNP Date of Service: 01/15/25 Procedure(s): CT angio head Accession Number(s): [id number] cc: Mendoza Norton PA-C; Kia Donohue CNP~ Report Number: [id number]: Total DLP = 1850.00 mGy-cm Reason for Exam: I67.1 - Cerebral aneurysm, nonruptured ADDENDUMThis document has been electronically signed by: Desiree Rodriguez MD on 01/15/2025 23:58:39 ADDENDUM: Neck images performed in error by a technologist This document has been electronically signed by: Desiree Rodriguez MD on 02/12/2025 19:05:15 Addendum Dictated By: Desiree Rodriguez MD Addendum Signed By: <Electronically signed by Desiree Rodriguez MD in OV> 02/12/251904 Addendum Cosigned By: DD/ /01/2358 TD/TT: 02/12/2512/30/1904 CLINICAL HISTORY: I67.1 - Cerebral aneurysm, nonruptured CT Head without contrast. CT angiography head with contrast. 3D Postprocessing. CT angiography neck with contrast. 3D Postprocessing. Comparison: None provided Findings: HEAD CT: BRAIN: No acute infarct, hemorrhage, or mass effect. No abnormal atrophy. CSF SPACES: No hydrocephalus or effacement of basal cisterns. SKULL: No calvarial fracture. SINUSES: Minimal right maxillary and left sphenoid sinus mucosal thickening. Two ORBITS: Limited views are unremarkable. OTHER: Negative. HEAD CTA: ANT CIRCULATION: No large vessel occlusion or AVM. No significant interval change in small 2 mm inferiorly orientedinfundibulum versus aneurysm of the supraclinoid left ICA. POST CIRCULATION: No large vessel occlusion, AVM or aneurysm. See same day CT brain for anatomic interpretation. NECK CTA: AORTIC ARCH: Normal aortic arch. No high-grade stenosis. R COMMON CAROTID: No hemodynamically significant stenosis or dissection. R INTERNAL CAROTID: No hemodynamically significant stenosis or dissection. R EXTERNAL CAROTID: No hemodynamically significant stenosis or dissection. R VERTEBRAL: No high-grade stenosis or dissection. L COMMON CAROTID: No hemodynamically significant stenosis or dissection. L INTERNAL CAROTID: No hemodynamically significant stenosis or dissection. L EXTERNAL CAROTID: No hemodynamically significant stenosis or dissection. L VERTEBRAL: No high-grade stenosis or dissection. LUNG APEX: Limited views of the lung apices are clear. SOFT TISSUES: The salivary and thyroid glands are within normal limits. No paraspinous soft tissue abnormality. LIMITED SPINE: No evidence of fracture on limited views. IMPRESSION: 1. Unremarkable head CT. 2. CTA head demonstrates no significant change in a 2 mm infundibulum versus aneurysm of the supraclinoid ICA. 3. Patent neck CTA. This document has been electronically signed by: Desiree Rodriguez MD on 01/15/2025 23:58:39 Dictated By: Desiree Rodriguez MD Signed By: <Electronically signed by Desiree Rodriguez MD in OV> 01/16/25 0156 -- CTA brain at [facility] in May 2023: 2mm L ICA supraclinoid infundibulum/aneurysm PSG at [facility] in 2016: PLMS arousal index 26.6. Assessment & Plan Assessment & Plan (1) Migraine without aura: Code(s): G43.009 - Migraine without aura, not intractable, without status migrainosus Category: Medical Qualifiers: Intractability: not intractable Status migrainosus presence: without status migrainosus Qualified Code(s): G43.009 - Migraine without aura, not intractable, without status migrainosus Plan: Continue rizatriptan 10mg 1 tablet as needed for migraine. Continue ondansetron 4mg 1 tablet as needed for nausea/vomiting #10 for 30 days. (2) Cerebral aneurysm: Code(s): I67.1 - Cerebral aneurysm, nonruptured Category: Medical Plan: CTA brain results reviewed, no significant change compared to previous in 05/2023. (3) RLS (restless legs syndrome): Code(s): G25.81 - Restless legs syndrome Category: Medical (4) Family history of cerebral aneurysm: Code(s): Z82.49 - Family history of ischemic heart disease and other diseases of the circulatory system Category: Medical (5) Exophoria: Code(s): H50.52 - Exophoria Category: Medical Plan Meds tried: topamax, propranalol, sumatriptan, amitryptiline, depakote, verapamil Medications: New ondansetron 4 mg PO DAILY PRN 10 tabs 5RF nausea and vomiting 30 days Refilled rizatriptan take 1 tab at onset of headache; if no relief may repeat 1 tab after at least 4 hrs; max = 2 tabs/24 hr PO 10 tabs 5RF 30 days Discontinued ondansetron HCl Discontinued Reason: Doctor's Order 4 mg PO Q8H 3 days PRN 10 tabs 0RF nausea and vomiting R11.0 - Nausea Coding Level of Care Code Est Pt Level 4 (61781) Diagnoses Migraine without aura and without status migrainosus, not intractable G43.009 Intractability: not intractable Status migrainosus presence: without status migrainosus Cerebral aneurysm I67.1 RLS (restless legs syndrome) G25.81 Family history of cerebral aneurysm Z82.49 Exophoria H50.52
--- OUTSIDE RECORDS SUMMARY | 2025-04-02 14:58 | XMS_ITS | Encounter Summary ---
Author Organization [facility] Address [address] [place] [phone] Phone Care Team Providers Care Internet Manager Name Role Phone Mendoza Norton Primary Care Provider + Reason for Referral * Physical Therapy (Routine) - Closed Specialty Diagnoses / Procedures Referred By Jordana piper Referred To Contact Physical Therapy Diagnoses Encounter for rehabilitation Ferdinand Pruett MD Phone: tel: fax: mailto:[email or web address] [address] [place] [address] Phone: tel: Referral ID Status Reason Start Date Expiration Date Visits Re quested Visits Authorized [id number] Closed 03/20/2019 03/20/2020 9 9 Encounter Details Date Type Department Care Team (Latest Contact Info) Description 03/20/2019 Transcribe Orders [facility] [address] [place] [address] Ferdinand Pruett MD 100 [facility] [address] [place] [address] [email or web address] Encounter for rehabilitation (Primary Dx) Social History [...] Diagnoses Orde r Schedule Ambulatory referral to [facility] Physical Therapy Outpatient Referral Routine Encounter for rehabilitation Ordered: 03/20/2019 documented as of this encounter Visit Diagnoses Diagnosis Encounter for rehabilitation- Primary documented in this encounter Care Teams Internet Manager Relationship Specialty Start Date End Date Mendoza Norton PA [address] [place] [address] PCP - General 03/20/19 documented as of this encounter Additional Source Comments The information contained in this document represents components of the legal health record. It is not the complete legal health record.[facility]
--- OUTSIDE RECORDS SUMMARY | 2025-04-02 14:58 | XMS_ITS | Clinical Summary ---
Author Organization [facility] Address [address] [place] [address] Phone Care Team Providers Care Fork Operator Name Role Phone Mendoza Norton Primary [...] ACO ACO ACO ACO ACO Care Teams Fork Operator Relationship Specialty Start Date End Date Mendoza Norton PA [address] [place] [address] PCP - General 03/20/19 Additional Source Comments The information contained in this document represents components of the legal health record. It is not the complete legal health record.[facility]
== END 2025-04-02 12:10 | disposition home or self-care (01) ==
LOC: HO.HSM 11:48
PROVIDERS: PCP Physician Assistant; Visit Provider Registered Nurse
DX: G43.009 Migraine without aura, not intractable, without status migrainosus (principal); I67.1 Cerebral aneurysm, nonruptured; G25.81 Restless legs syndrome; Z82.49 Family history of ischemic heart disease and other diseases of the circulatory system; H50.52 Exophoria
CPT/HCPCS: 99214

== ENCOUNTER → 2025-04-02 11:47 | Outpatient (BNVA) | payer OTHER, SELFPAY | PROVIDERS: PCP Physician Assistant; Visit Provider Registered Nurse | DX: G43.009 Migraine without aura, not intractable, without status migrainosus (principal); I67.1 Cerebral aneurysm, nonruptured; G25.81 Restless legs syndrome; H50.52 Exophoria; R11.0 Nausea; Z82.49 Family history of ischemic heart disease and other diseases of the circulatory system; Z79.899 Other long term (current) drug therapy | CPT/HCPCS: 99212 ==

== ENCOUNTER 2025-05-07 11:40 | Outpatient (AMB) | payer OTHER, SELFPAY ==
--- OUTSIDE RECORDS SUMMARY | 2023-12-13 05:40 | XMS_ITS ---
Author Organization [facility] Address [address] [facility] [address] [place] [address] Care Team Providers Care Patient Intake Coordinator Name Role Phone Mendoza Norton Primary Care Provider Unavailab Gaurav Lo Jr [phone] REASON FOR VISIT Patient presents today for gastritis Encounters Encounter Location Date Provider Diagnosis [facility] [address] [facility] [address] [place] [address] 12/13/2023 Gaurav Nunez Jr Plan Of Treatment Next Appt Details Provider Name:Gaurav connor Jr, 01/19/2026 10:40:00 AM, [address] [facility], Suite [facility], [place], [address], Progress Notes * MELINA COOKDOB:1965 (59 yo F)Acc No.[id number]:12/13/2023 Progress Notes Patient: MELINA VALDOVINOS Provider: Sharee Nunez MD :1965 A ge:58 Y S ex:Female Date:12/13/2023 Address:[address] [place] [address] Pcp:Mendoza Norton Subjective: * Chief Complaints: * P atient presents today for gastritis * The named appointment provid er may or may not be the originator of this progress note, and it is not deemed complete until electronically signed by the appointment provider. Sign off status: Pending * Provider: Sharee Nunez MD Date: 0 12/13/2023 Generated for Lupe flood/Renan/Ron on: 1 01:23 PM EST
--- OUTSIDE RECORDS SUMMARY | 2024-01-19 06:00 | XMS_ITS ---
Author Organization [facility] Address [address] [place] [address] [place] [address] Care Team Providers Care Lode Miner Name Role Phone Mendoza Norton Primary Care Provider UnavailGaurav Acosta Jr REASON FOR VISIT epigastric pain Encounters Encounter Location Date Provider Diagnosis [facility] Outpatient [address] [place] [phone] 01/19/2024 Gaurav Nunez Jr Epigastric pain R10.13 Assessments Encounter Date Diagnosis (ICD Code) Assessment Notes Treatment Notes Treatment Clinical Notes Section Notes 01/19/2024 Epigastric pain (ICD-10 - R10.13) Plan Of Treatment Next Appt Details Provider Name:Gaurav connor Jr, 01/19/2026 10:40:00 AM, 10 [facility], Suite [facility], [place], [address], Progress Notes * MELINA COOKDOB:1965 (59 yo F)Acc No.[id number]:01/19/2024 EGD/MAC Patient: MELINA VALDOVINOS Provider: Sharee Nunez MD :1965 A ge:58 Y S ex:Female Date:01/19/2024 Address:[address] [place] [address] Pcp:Mendoza Norton Subjective: * Chief Complaints: * E pigastric pain Assessment: * Assessment: 1. E pigastric pain - R10.13 (Primary) Plan: * Procedure Codes: 4 3239 UPPER GI ENDOSCOPY, BIOPSY Billing Information: * Procedure Codes: 76004 UPPER GI ENDOSCOPY, BIOPSY. * The named appointment provid er may or may not be the originator of this progress note, and it is not deemed complete until electronically signed by the appointment provider. Sign off status: Pending * Provider: Sharee Nunez MD Date: 0 01/19/2024 Generated for Lupe flood/Renan/Evitaitting on: 1 01:23 PM EST
--- NOTE | 2025-05-07 11:48 | MHC.OFFVIS ---
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 Patient was recently seen at [facility] walk in with complaints of left hip pain after she stepped awkwardly the week before . Complaints of progressively worsened pain. Hx of right LILY. Today patient reports that for the past two years she has had left hip pain but a few months ago is when the pain flared up due to stepping wrong. Patient noted that the pain does radiate into the left thigh but never down the leg. She reports that she does take Naproxen as needed and NSAIDS for the pain. Allergies celecoxib (From Celebrex) Allergy (Intermediate, Verified 04/02/25 12:03) Hives Iodinated Contrast Media (Contrast Dye) Allergy (Verified 04/02/25 12:03) Hives Medication List - Last Reconciled 05/07/25 by Kaela King PA-C albuterol sulfate 90 mcg/actuation (Ventolin HFA) 2 puffs PO Q6H PRN aripiprazole (Abilify) 2 mg PO DAILY 30 days bupropion HCl XL 300 mg PO DAILY 30 days cholecalciferol (vitamin D3) 50 mcg PO DAILY cyclobenzaprine 5 mg PO Q8H PRN diphenhydramine HCl (Benadryl Allergy) 50 mg orally 1 hour before appointment; 1 day estradiol transdermal fluticasone propion-salmeterol 45-21 mcg/actuation (Advair HFA) 1 puff inhalation DAILY lorazepam 0.5 mg PO BID PRN 5 days naproxen 500 mg PO Q12H PRN 7 days nitrofurantoin monohyd/m-cryst 100 mg (Macrobid) 100 mg PO Q12H 5 days ondansetron 4 mg PO DAILY PRN 30 days progesterone micronized mg PO rizatriptan take 1 tab at onset of headache; if no relief may repeat 1 tab after at least 4 hrs; max = 2 tabs/24 hr PO 30 days HPI Comments Details: History of Present Illness The patient is a 59 year old female presenting for evaluation of left hip pain. She has experienced irregular pain for over a year, with a significant increase in severity since the end of summer, which prompted an urgent care visit in February. At the urgent care, an x-ray was performed and she was prescribed Naproxen, which she reports barely relieved the pain. The pain is localized to the outside of her hip and occasionally radiates to the back, front, and down into the thigh. The pain is exacerbated by lying on the affected side, prolonged sitting, and prolonged standing. The patient notes that the current symptoms feel similar to the pain she experienced in her right hip prior to her hip replacement. Her past surgical history is significant for a right hip replacement in November 2021. The x-ray of her left hip from February showed some sclerotic changes indicative of arthritis, but no severe joint collapse. Social History [facility] Medical History Cerebral aneurysm Exophoria Periodic limb movement disorder Migraine without aura RLS (restless legs syndrome) Hypotension Arthritis Refusal of blood transfusions as patient is Protestant Osteoarthritis of right hip Hx of migraine headaches Asthma MDD (major depressive disorder), recurrent episode, moderate Surgical History Status post laparoscopic cholecystectomy Status post total replacement of right hip H/O colonoscopy History of removal of cyst History of eye surgery History of section Family History Father Myocardial infarction Diabetes Hypertension CVD (cardiovascular disease) Mother Hypertension Sister Hypertension Maternal Grandmother Medical history unknown Maternal Grandfather Glaucoma Paternal Grandmother Alzheimers disease Paternal Grandfather Diabetes Son Down syndrome Autism Myelofibrosis Family/Other Breast cancer Social History Household Members: Significant Other and Family Housing: House Are you a primary regular senior care provider to a significant other at home: No Do you presently have visiting nurse or other home services: No Alcohol intake: current Alcohol intake frequency: holidays/special occasions only Alcohol type: beer and wine Patient Tobacco Use Status: Former Tobacco user Tobacco use type: Cigarette e-Cigarette/Vaping Use: Never Used Second Hand Smoke Exposure: No Advance Directives Date on File: 11/02/21 service: No Current occupational status: unemployed 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 - Pain is exacerbated by direct pressure such as lying on the left side, sitting, and prolonged standing. Physical Exam Exam Exam: Physical Exam - Musculoskeletal: On examination of the left hip, there is point tenderness to palpation over the iliac crest/greater trochanteric bursa area. - There is weakness of the hip flexor muscles on resisted testing along with pain -Full PROM of the left hip Office Procedures AMB Joint Injection/Aspiration Joint Injection/Aspiration Primary Site: Left Trochanteric Bursa Prep: site was prepped using aseptic technique, ethochloride spray was applied and injection warnings given Injected: 40 mg of, Decadron, with 3 mL of, 1% plain Lidocaine and 0.25% Bupivacaine Procedure: The patient tolerated the procedure well and there was some relief with the local anesthesia Coding 61482 - Glenohumeral/Tronchanteric Bursa/Intraarticular Procedure code (CPT) selection complete Assessment & Plan Assessment & Plan (1) Trochanteric bursitis, left hip: Code(s): M70.62 - Trochanteric bursitis, left hip Category: Medical Plan The patient's presentation of pain on the side of the hip, nocturnal pain when lying on the affected side, and tenderness to palpation over the greater trochanter are highly suggestive of a soft tissue issue, such as trochanteric bursitis with associated hip muscle imbalance, rather than severe primary intra-articular arthritis. X-rays from February confirm only sclerotic changes without significant joint space collapse. Although the patient feels the symptoms are similar to her contralateral hip prior to replacement, the clinical findings warrant ruling out and treating soft tissue pathology before considering a major surgery like hip replacement, as the surgery would not address bursitic pain. The plan is to start with conservative management to address the suspected bursitis and muscle imbalance. The patient has agreed to proceed with a corticosteroid injection into the affected bursa to reduce inflammation. A referral to physical therapy will be made to address muscle imbalances, particularly to strengthen weak gluteal muscles and stretch tight hip flexors. Follow-up is recommended in approximately six weeks to assess her response. If symptoms persist despite these measures, particularly deep groin pain or functional walking limitations, then reconsideration of total hip arthroplasty would be appropriate. Consent The plan to proceed with an injection for left hip bursitis was discussed with the patient. It was explained that this approach, along with physical therapy, aims to treat a likely soft tissue inflammation and muscle imbalance before considering a more invasive surgery such as hip replacement. The patient was informed that there is a possibility the injection may not provide relief. Understanding the rationale and alternatives, the patient provided verbal consent to proceed with the injection. Patient was informed and verbally consented to the use of an ambient scribe for clinic note documentation during this visit. Coding Level of Care Code New Pt Level 3 (88286) Add On Problem Visit Only Diagnoses Trochanteric bursitis, left hip M70.62 CPT Codes Coding - Joint 7: 91388 - Glenohumeral/Tronchanteric Bursa/Intraarticular ([id number])
--- OUTSIDE RECORDS SUMMARY | 2025-05-07 13:23 | XMS_ITS | Encounter Summary ---
Author Organization [facility] Address [address] [place] [address] Phone Care Team Providers Care Top Waddy Name Role Phone Mendoza Norton Primary Care Provider + Reason for Referral * Physical Therapy (Routine) - Closed Specialty Diagnoses / Procedures Referred By Jordana santacruz Referred To Contact Physical Therapy Diagnoses Encounter for rehabilitation Ferdinand Pruett MD Phone: tel: fax: mailto:[email or web address] [place] [address] Phone: tel: Referral ID Status Reason Start Date Expiration Date Visits Re quested Visits Authorized [id number] Closed 03/20/2019 03/20/2020 9 9 Encounter Details Date Type Department Care Team (Latest Contact Info) Description 03/20/2019 Transcribe Orders [facility] [address] [place] [address] [facility]ruett [facility] [address] [facility] [address] [place] [address] [email or web address] Encounter for rehabilitation (Primary Dx) Social History [...] Diagnoses Orde r Schedule Ambulatory referral to [facility] Physical Therapy Outpatient Referral Routine Encounter for rehabilitation Ordered: 03/20/2019 documented as of this encounter Visit Diagnoses Diagnosis Encounter for rehabilitation- Primary documented in this encounter Care Teams Top Waddy Relationship Specialty Start Date End Date Mendoza Norton PA [address] [place] [address] PCP - General 03/20/19 documented as of this encounter Additional Source Comments The information contained in this document represents components of the legal health record. It is not the complete legal health record.[facility]
--- OUTSIDE RECORDS SUMMARY | 2025-05-07 13:23 | XMS_ITS | Clinical Summary ---
Author Organization [facility] Address [address] [place] [address] Phone Care Team Providers Care Call Or Contact Centre Team Leader Name Role Phone Mendoza Norton Primary Care [...] [facility] [place] [address] Care Teams Call Or Contact Centre Team Leader Relationship Specialty Start Date End Date Mendoza Norton PA [address] [place] [address] PCP - General 03/20/19 Additional Source Comments The information contained in this document represents components of the legal health record. It is not the complete legal health record.[facility]
--- OUTSIDE RECORDS SUMMARY | 2025-05-07 13:23 | XMS_ITS | Patient Health Record ---
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 Name Role Phone Mendoza Norton Primary Care Provider Gaurav Porter Jr Unavailable [phone] Allergies Allergen (clinical drug ingredient) Drug/Non Drug Allergy documented on EMR Reaction Allergy Type Onset Date Status contrast dye (uncoded) Unknown Allergy Active celecoxib CeleBREX Unknown Drug Allergy Active Reason For Referral No Information Medications Medication SIG (Take, Route, Frequency, Duration) Notes Start Date End Date Status Vitamin D in winter Active Rizatriptan Benzoate 10 MG Tablet TAKE 1 TABLET BY MOUTH EVERY DAY FOR 30 DAYS Oral; Duration: 30 prn Active Super B Complex - Tablet Orally Active Ibuprofen as needed Active Omeprazole 20 MG Capsule Delayed Release TAKE 1 CAPSULE BY MOUTH EVERY DAY FOR 30 DAYS; Duration: 90 Active Albuterol Sulfate HFA 108 (90 Base) MCG/ACT Aerosol Solution 1 puff as needed Inhalation every 4 hrs Not-Taking/PRN Melatonin 3 MG Tablet 1 tablet at bedtim e as needed with food Orally as needed Active Progesterone 100 MG Capsule Oral; Duration: 90 Days Active Testosterone 25 MG/2.5GM (1%) Gel 2 packets to skin in the morning to shoulder, upper arms or abdomen Transdermal Once a day 01/15/2025 Active Ventolin HFA 108 (90 Base) MCG/ACT Aerosol Solution Inhalation; Duration: 25 Active buPROPion HCl ER (XL) 300 MG Tablet Extended Release 24 Hour Oral; Duration: 30 Active Immunizations Vaccine Route Administration Date Status Comme nts Influenza Unknown 04/07/2023 Administered Social History Tobacco Use: Social History Observation Description Date Details (start date - stop date) Former Smoker NA - NA Social History Drug/Alcohol: Social Info Question Answer Notes AUDIT-C (Standard) Did you have a drink containing alcohol in the past year? Yes How often did you have a drink containing alcohol in the past year? Monthly or less (1 point) How many drinks did you have on a typical day when you were drinking in the past year? 1 or 2 drinks (0 point) How often did you have six or more drinks on one occasion in the past year? Never (0 point) Points 1 Interpretation Negative Tobacco Use: Social Info Question Answer Notes Tobacco Use/Smoking Patient is a former smoker How long has it been since you last smoked? > 10 years Additional Details Category Social Info Options Details Miscellaneous: Marital status: Occupation: home Section Notes: former smoker over 17 years ago former smoker over 17 years ago former smoker over 17 years ago former smoker over 17 years ago Problems Problem Type SNOMED Code ICD Code Onset Dates Problem Status W/U Status Risk Notes Problem Colon cancer screening (790540540) Colon cancer screening (Z12.11) Active confirmed Problem Epigastric pain (95954400) Epigastric pain (R10.13) Active confirmed Problem History of polyp of colon (situation) (878347217) Personal history of colonic polyps (Z86.010) Active confirmed Problem Gastroesophageal reflux disease (089529775) Gastroesophageal reflux disease (K21.9) Active confirmed Problem assisted current use of non-steroidal anti-inflammatory drug (125964435849484) Encounter for long-term (current) use of NSAIDs (Z79.1) Active confirmed Vital Signs Temperature 97.3 degrees Fahrenheit 01/15/2025 Blood pressure diastolic 01 mm Hg 01/15/2025 Height 58.5 in 01/15/2025 Blood pressure systolic 001 mm Hg 01/15/2025 Weight 117.8 lbs 01/15/2025 BMI 24.2 kg/m2 01/15/2025 Encounters Encounter Location Date Provider Diagnosis [facility] [address] [place] [phone] 01/15/2025 Gaurav Nunez Jr Gastroesophageal reflux disease [...] Provider Name:Gaurav connor Jr, 01/19/2026 10:40:00 AM, [address] [place] [address], [address], [place], [address], Insurance Providers Payer Name Payer Address Payer Phone Subscriber Number Group Number Insured Name Patient Relationship to Insured Coverage Start Date Coverage End Date [facility] [address] [address] [place] [employer], [place] [id number] MELINA COOK Self - patient is the insured MEDICAID OF [facility] [address] [place] [phone] [id number] MELINA COOK Self - patient is the insured Medical (General) History Medical History History ICD Code asthma migraine headaches seasonal allergies Colonoscopy 06/20/23, hyperplastic polyp, ten-year followup Surgical History Surgery Date(Month/Year) section Strabismus repair 1989 Right hip replacement 11/26 Cholecystectomy 04/28
== END 2025-05-07 12:20 | disposition home or self-care (01) ==
PROVIDERS: PCP Physician Assistant; Visit Provider Physician Assistant
DX: M70.62 Trochanteric bursitis, left hip (principal)
CPT/HCPCS: 20610; 99213

== ENCOUNTER → 2025-05-07 11:40 | Outpatient (BNVA) | payer OTHER, SELFPAY | PROVIDERS: PCP Physician Assistant; Visit Provider Physician Assistant | DX: M70.62 Trochanteric bursitis, left hip (principal); Z96.641 Presence of right artificial hip joint | CPT/HCPCS: 20610; 99212; J0665; J1100; J2003 ==